=== PATIENT | male | born 1945 | race Caucasian/White ===

== ENCOUNTER 2017-06-04 06:30 | Day surgery (SDC) | payer MEDICARE, OTHER ==
[~2017-06-04 06:30] MED LIST: Lactated Ringers 1,000 ML IV SCH
[2017-06-04] MEDS ORDERED: Propofol 200 MG/20 ML SDV ONE ×2 (07:56→09:05)
[2017-06-04] MEDS ORDERED: fentaNYL 100 MCG/2 ML SDV ONE (07:57)
--- NOTE | 2017-06-04 10:35 | OR ---
PREOPERATIVE DIAGNOSIS: Dysphagia. POSTOPERATIVE DIAGNOSES: Gastritis, small hiatal hernia without gastroesophageal reflux disease. PROCEDURE PROPOSED: Upper gastrointestinal panendoscopy. PROCEDURE DONE: Upper gastrointestinal panendoscopy with antral biopsies. INDICATION: This is a 72-year-old gentleman bothered with some dysphagia with a feeling of some intermittent food sticking more so in his upper esophageal area occurring about 2 to 3 times a month. He does have a history of indigestion and does take Protonix and has been on that for several years. It is felt he should be gastroscoped to rule out esophageal stenosis or other abnormality. TECHNIQUE: The patient was brought to the endoscopy suite and placed in left lateral decubitus position. He was sedated per RAG CUTTING MACHINE OPERATOR with propofol. The flexible video gastroscope was then passed transorally and under visualization advanced well into the duodenum. The duodenum and the duodenal bulb was unremarkable. The antrum and body of the stomach did reveal gastritis with patches of redness and inflammation. An antral biopsy was taken to rule out H. pylori. The GE junction revealed a rather small insignificant approximately 3- cm hiatal hernia. There was no evidence of any active GERD. The GE junction was well-demarcated without Carlson's esophagus, stenosis, or Schatzki's ring, and the remainder of esophagus was normal. The scope was then withdrawn. The patient tolerated procedure well. FINAL IMPRESSION: 1. Gastritis. 2. 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 PLAN: I am going to double his Protonix to twice a day for a month and then back to 1 a day and see if that will help him get over the hump. He needs to avoid caffeine, alcohol, ibuprofen, and follow up with his PCP as needed. SCM: 06/04/2017 09:37:26 MODL: 06/04/2017 10:16:27 /[id number]
--- NOTE | 2017-06-04 10:35 | OR ---
PREOPERATIVE DIAGNOSIS: History of polyps. POSTOPERATIVE DIAGNOSIS: Sigmoid diverticulosis, hepatic flexure polyp, small, removed. PROCEDURE PROPOSED: Total flexible colonoscopy. PROCEDURE DONE: Total flexible colonoscopy with polypectomy x1. INDICATION: This 72-year-old gentleman has a history of polyps. He has had multiple colonoscopies over the years. His last one was 6 years ago at which point he does not think he had any polyps. TECHNIQUE: The patient was sedated per TOOL AND DIE MAKER APPRENTICE with propofol and placed in the left lateral decubitus position. The flexible video colonoscope was then passed transanally and under visualization advanced to the cecum with some difficulty mainly getting around hepatic flexure, but I was able to get down into a good view of the cecum. No signs of any polyps or abnormalities in the cecum and ascending colon area. In the hepatic flexure region, there was a small polyp removed with 1 bite of the cold biopsies forceps and submitted for pathologic examination. The transverse and descending colon were unremarkable. The sigmoid colon revealed some mild diverticulosis and the rectum was normal. The scope was then withdrawn. He tolerated the procedure well. FINAL IMPRESSION: 1. Hepatic flexure polyp x1 removed. 2. Sigmoid diverticulosis. PLAN: He will be sent a letter with pathology report. I felt that his age and with his medical issues that this is likely the last time he needs his colonoscopy done. SCM: 06/04/2017 09:37:26 MODL: 06/04/2017 10:20:26 /[id number]
--- NOTE | 2017-06-10 14:57 | LETTER ---
06/10/2017 Yanely Hicks. RE: FATMATA ONEILL YANELY : 1945 Dear Mr. Ny, The biopsies taken from your stomach revealed no worrisome abnormality and you do not have the bacteria known as H. pylori in your stomach, which can cause acid problems. The polyp removed from your colon was a tubular adenoma and this is considered a precancerous type polyp, but there were no worrisome findings within your polyp. I would encourage you to have one more examination in your lifetime in 3 to 5 years from now. If you have any further questions regarding this, feel free to call. Respectfully,
== END 2017-06-04 11:00 | disposition home or self-care (01) ==
LOC: VM.SDS 06:30
PROVIDERS: ATTEND Surgery
DX: Z12.11 Encounter for screening for malignant neoplasm of colon (principal); D12.3 Benign neoplasm of transverse colon; K57.30 Diverticulosis of large intestine without perforation or abscess without bleeding; K29.50 Unspecified chronic gastritis without bleeding; K44.9 Diaphragmatic hernia without obstruction or gangrene; I11.0 Hypertensive heart disease with heart failure; I50.9 Heart failure, unspecified; E11.42 Type 2 diabetes mellitus with diabetic polyneuropathy; J45.909 Unspecified asthma, uncomplicated; E66.01 Morbid (severe) obesity due to excess calories; Z68.41 Body mass index [BMI] 40.0-44.9, adult; I25.118 Atherosclerotic heart disease of native coronary artery with other forms of angina pectoris; D68.51 Activated protein C resistance; H81.03 Meniere's disease, bilateral; K21.9 Gastro-esophageal reflux disease without esophagitis; C61 Malignant neoplasm of prostate; I82.409 Acute embolism and thrombosis of unspecified deep veins of unspecified lower extremity; G47.33 Obstructive sleep apnea (adult) (pediatric); F41.8 Other specified anxiety disorders; Z86.010 Personal history of colon polyps; Z79.82 Long term (current) use of aspirin; Z79.01 Long term (current) use of anticoagulants; Z79.4 Long term (current) use of insulin; Z98.890 Other specified postprocedural states; Z88.0 Allergy status to penicillin; Z88.8 Allergy status to other drugs, medicaments and biological substances; Z91.040 Latex allergy status; Z95.1 Presence of aortocoronary bypass graft
CPT/HCPCS: 00813; 36415; 43239; 45380; 82962; 85610; 88305; 88342; J2704; J3010; J7120

== ENCOUNTER 2018-06-12 09:52 | Emergency (ER) | payer MEDICARE, OTHER ==
--- NOTE | 2018-06-12 10:27 | EDM.PDOC ---
ED HPI GENERAL MEDICAL PROBLEM - General Chief Complaint: General Stated Complaint: WEAK,TIRED,COUGHING Time Seen by Provider: 06/12/18 09:55 Source of Information: Reports: Patient, RN, RN Notes Reviewed History Limitations: Reports: No Limitations - History of Present Illness INITIAL COMMENTS - FREE TEXT/NARRATIVE: Patient presents to the ED at [facility] for the evaluation of weakness, dizziness, and SOB for about 1 1/2 weeks. Patient states he has been coughing up a green phlegm. His weight have been fluctuating and has a PRN Lasix if needed. He has a history of dizziness in which he see ENT. S/P PE tube right ear. Has a mild sore throat. Feels SOB, especially with coughing. No eye or ear symptoms. He had felt feverish. Is taking in enough fluids. History of uncontrolled DM. Denies any rhinitis or sinus pressure/pain. Patient states he has some body aches. Onset Date: 05/31/18 - Related Data Allergies Allergy/AdvReac Type Severity Reaction Status Date / Time liraglutide [From Victoza] Allergy Severe Anaphylactic Verified 06/12/18 10:15 Shock Latex, Natural Rubber Allergy Rash Verified 06/12/18 10:15 Penicillins Allergy Rash Verified 06/12/18 10:15 Beta-Blockers AdvReac Hypotension Verified 06/12/18 10:15 (Beta-Adrenergic Bloc Home Meds: Home Meds Albuterol [IJD: Albuterol HFA] 1 - 2 puff PO Q4H PRN 05/27/17 [History] Arginine [l-Arginine] 1 tab PO BID 05/27/17 [History] Aspirin [Halfprin] 325 mg PO DAILY 05/27/17 [History] Canagliflozin [Invokana] 300 mg PO ACBREAKFAST 05/27/17 [History] Furosemide [Lasix] 20 mg PO DAILY PRN 05/27/17 [History] Gabapentin [Neurontin] 500 mg PO BEDTIME 05/27/17 [History] Glimepiride [Amaryl] 4 mg PO DAILY 05/27/17 [History] Insulin Glargine,Hum.Rec.Anlog [Jennifer Solostdaphney] 50 unit SQ BEDTIME 05/27/17 [ History] Isosorbide Mononitrate [Imdur] 30 mg PO DAILY 05/27/17 [History] Latanoprost [Xalatan 0.005% Ophth Soln] 1 drop EYEBOTH BEDTIME 05/27/17 [History ] Lisinopril 2.5 mg PO DAILY 05/27/17 [History] Metoprolol Tartrate [Lopressor] 25 mg PO BID 05/27/17 [History] Nitroglycerin [Nitrostat] 0.4 mg PO ASDIRECTED PRN 05/27/17 [History] Pantoprazole Sodium [Protonix] 40 mg PO DAILY 05/27/17 [History] Rosuvastatin [Crestor] 40 mg PO DAILY 05/27/17 [History] Venlafaxine [Effexor XR] 150 mg PO DAILY 05/27/17 [History] Warfarin [Coumadin] 5 mg PO ASDIRECTED 05/27/17 [History] metFORMIN HCl [Metformin HCl] 1,000 mg PO BID 05/27/17 [History] Past Medical History HEENT History: Reports: Cataract, Glaucoma, Other (See Below) Other HEENT History: menieres disease Cardiovascular History: Reports: Aneurysm, Blood Clots/VTE/DVT, CAD, Heart Failure, Heart Murmur, Hypertension, SOB on Exertion Respiratory History: Reports: Sleep Apnea, Other (See Below) Other Respiratory History: pt says he might have COPD, reactive airway disease Gastrointestinal History: Reports: Colon Polyp, GERD, Other (See Below) Other Gastrointestinal History: dysphagia Genitourinary History: Reports: Renal Calculus Musculoskeletal History: Reports: Arthritis Neurological History: Reports: Other (See Below) Other Neuro History: mononeuritis Psychiatric History: Reports: Anxiety, Depression Endocrine/Metabolic History: Reports: Diabetes, Type II, Obesity/BMI 30+ Hematologic History: Reports: Other (See Below) Other Hematologic History: heterozygous factor V Leiden mutation Oncologic (Cancer) History: Reports: Prostate - Past Surgical History HEENT Surgical History: Reports: Cataract Surgery Other HEENT Surgeries/Procedures: cornea transplant bilateral Cardiovascular Surgical History: Reports: Coronary Artery Bypass, Coronary Artery Stent GI Surgical History: Reports: Bariatric Procedure, Colonoscopy Male Surgical History: Reports: Prostatectomy Other Oncologic Surgeries/Procedures: prostatectomy Social & Family History - Tobacco Use Smoking Status *Q: Unknown Ever Smoked ED ROS GENERAL - Review of Systems Review Of Systems: See Below Constitutional: Reports: Fever, Weakness. Denies: Chills HEENT: Reports: Throat Pain. Denies: Ear Discharge, Ear Pain, Eye Discharge, Rhinitis, Sinus Problem, Vision Change Respiratory: Reports: Shortness of Breath, Cough, Sputum Cardiovascular: Denies: Chest Pain, Palpitations GI/Abdominal: Denies: Abdominal Pain, Nausea, Vomiting Skin: Reports: No Symptoms Neurological: Reports: Dizziness, Weakness. Denies: Headache ED EXAM, GENERAL - Physical Exam Exam: See Below Exam Limited By: No Limitations General Appearance: Alert, No Apparent Distress Eye Exam: Bilateral Eye: Normal Inspection, PERRL Ears: Normal External Exam, Normal Canal, Normal TMs Ear Exam: Bilateral Ear: TM normal Nose: Normal Inspection Throat/Mouth: Other (slight posterior erythema of oropharynx) Neck: Supple Respiratory/Chest: No Respiratory Distress, Lungs Clear, Decreased Breath Sounds Cardiovascular: Regular Rate, Rhythm, Systolic Murmur Peripheral Pulses: 2+: Radial (L), Radial (R) GI/Abdominal: Normal Bowel Sounds, Soft, Non-Tender Neurological: Alert, Oriented Skin Exam: Warm, Dry, Intact, Normal Color Course - Vital Signs Last Recorded V/S: Last Vital Signs Temp 36.1 C 06/12/18 09:55 Pulse 98 06/12/18 09:55 Resp 18 06/12/18 09:55 BP 105/52 L 06/12/18 09:55 Pulse Ox 99 06/12/18 09:55 - Orders/Labs/Meds Orders: Active Orders 24 hr Category Date Time Status CULTURE BLOOD [BC] Stat Lab 06/12/18 10:22 Results CULTURE BLOOD [BC] Stat Lab 06/12/18 10:30 Received CULTURE STREP A CONFIRMATION [] Stat Lab 06/12/18 10:12 Results STREP SCRN A RAPID W CULT CONF [] Stat Lab 06/12/18 10:12 Results Blood Culture x2 Reflex Set [OM.PC] Stat Oth 06/12/18 10:10 Ordered Labs: Laboratory Tests 06/12/18 06/12/18 06/12/18 Range/Units 10:22 10:22 10:22 WBC 7.4 (4.0-10.0) x10^3/uL RBC 4.49 L (4.5-6.0) x10^6/uL Hgb 13.2 L (14.0-18.0) g/dL Hct 41.9 (40.0-52.0) % MCV 93.3 H (78.0-93.0) fL MCH 29.4 (26.0-32.0) pg MCHC 31.5 L (32.0-36.0) g/dL RDW Coeff of Kim 16.5 H (10.0-15.0) % Plt Count 205 (130-400) x10^3/uL Neut % (Auto) 69.1 (50.0-80.0) % Lymph % (Auto) 19.7 L (25.0-50.0) % Real % (Auto) 8.1 (2.0-11.0) % Eos % (Auto) 1.5 (0.0-4.0) % Baso % (Auto) 1.6 H (0.2-1.2) % Sodium 135 L (136-145) mmol/L Potassium 4.4 (3.5-5.1) mmol/L Chloride 98 (98-107) mmol/L Carbon Dioxide 25 (21-32) mmol/L Anion Gap 16.4 (10-20) mmol/L BUN 28 H (7-18) mg/dL Creatinine 1.2 (0.70-1.30) mg/dL Est Cr Clr Drug Dosing TNP Estimated GFR (MDRD) 59 Glucose 249 H (74-106) mg/dL Lactic Acid 3.5 H* (0.4-2.0) mmol/L Calcium 9.6 (8.5-10.1) mg/dL Corrected Calcium 10.16 H (8.5-10.1) mg/dL Total Bilirubin 0.4 (0.2-1.0) mg/dL AST 12 L (15-37) U/L ALT 26 (16-63) U/L Alkaline Phosphatase 58 (46-116) U/L C-Reactive Protein 1.4 H (<=0.9) mg/dL Total Protein 7.4 (6.4-8.2) g/dL Albumin 3.3 L (3.4-5.0) g/dL Globulin 4.1 Albumin/Globulin Ratio 0.80 - Radiology Interpretation Free Text/Narrative:: CXR: Negative for pneumonia See scanned report in EMR for details Departure - Departure Time of Disposition: 11:23 Disposition: Home, Self-Care 01 Condition: Good Clinical Impression: URI (upper respiratory infection) Qualifiers: URI type: unspecified URI Qualified Code(s): J06.9 - Acute upper respiratory infection, unspecified - Discharge Information *PRESCRIPTION DRUG MONITORING PROGRAM REVIEWED*: Not Applicable *COPY OF PRESCRIPTION DRUG MONITORING REPORT IN PATIENT SAM: Not Applicable Instructions: Viral Respiratory Infection Referrals: Jaycee Yanez DO [Primary Care Provider] - Forms: ED Department Discharge Additional Instructions: 1. Stay well hydrated and rest 2. Use over the counter medicines as needed for your symptoms 3. LOTS of water 4. See Dr. Yanez in clinic this week for a recheck 5. Call us with any questions or concerns - Problem List Review Problem List Initiated/Reviewed/Updated: Yes - My Orders Last 24 Hours: My Active Orders 06/12/18 10:10 Blood Culture x2 Reflex Set [OM.PC] Stat 06/12/18 10:12 CULTURE STREP A CONFIRMATION [RM] Stat STREP SCRN A RAPID W CULT CONF [RM] Stat 06/12/18 10:22 CULTURE BLOOD [BC] Stat 06/12/18 10:30 CULTURE BLOOD [BC] Stat - Assessment/Plan Last 24 Hours: My Active Orders 06/12/18 10:10 Blood Culture x2 Reflex Set [OM.PC] Stat 06/12/18 10:12 CULTURE STREP A CONFIRMATION [RM] Stat STREP SCRN A RAPID W CULT CONF [RM] Stat 06/12/18 10:22 CULTURE BLOOD [BC] Stat 06/12/18 10:30 CULTURE BLOOD [BC] Stat Assessment:: Upper respiratory infection Elevated lactic acid level Plan: Labs and xray discussed with patient. No acute bacterial infection or emergency found. Case discussed with Dr. Jaycee Yanez. Recommend patient to follow up in clinic this week for a recheck. Symptomatic treatment at this point. Needs to stay well hydrated. Use OTC products for symptom management.
[2018-06-12 10:58] LABS: CHLORIDE,CL 98 mmol/L (98-107); SODIUM,NA 135 mmol/L (136-145)
[2018-06-12 11:02] LABS: ANION GAP 16.4 mmol/L (10-20)
--- NOTE | 2018-06-12 11:08 | CR ---
[id number] RAD/RAD Chest PA And Lateral EXAM: RAD Chest PA And Lateral INDICATION: FEVER, COUGH. COMPARISON: None. DISCUSSION: Mild cardiomegaly. Status post median sternotomy. Lungs are clear. IMPRESSION: Negative for pneumonia. Colby Maldonado MD 06/12/18 [id number] Thank you for allowing us to participate in the care of your patient.
== END 2018-06-12 11:35 | disposition home or self-care (01) ==
LOC: VM.ED 09:52
DX: J06.9 Acute upper respiratory infection, unspecified (principal); R79.89 Other specified abnormal findings of blood chemistry; E11.9 Type 2 diabetes mellitus without complications; K21.9 Gastro-esophageal reflux disease without esophagitis; I11.0 Hypertensive heart disease with heart failure; I50.9 Heart failure, unspecified; Z79.899 Other long term (current) drug therapy; Z79.4 Long term (current) use of insulin; Z91.040 Latex allergy status; Z88.0 Allergy status to penicillin; Z88.8 Allergy status to other drugs, medicaments and biological substances
CPT/HCPCS: 36415; 71046; 80053; 83605; 85025; 86140; 87040; 87081; 87804; 87804-59; 87880-QW; 99283-25; 99283-GF

== ENCOUNTER 2018-09-28 14:00 | Observation (INO) | payer MEDICARE, OTHER ==
--- NOTE | 2018-09-28 14:18 | EDM.PDOC ---
ED HPI GENERAL MEDICAL PROBLEM - General Chief Complaint: General Stated Complaint: TRAUMA Time Seen by Provider: 09/28/18 14:00 Source of Information: Reports: Patient, EMS, EMS Notes Reviewed, Family History Limitations: Reports: No Limitations - History of Present Illness INITIAL COMMENTS - FREE TEXT/NARRATIVE: Patient comes into the emergency department by EMS with a ground-level fall with possibility of loss of consciousness. Patient states he does remember feeling weak and ill prior to this fall. However he does not remember the fall and does not remember how long he was lying there. He remembers waking up and waiting approximately 5-10 minutes until a bystander came by to help. When the bystander came by they contacted 911. Bedtime EMS on scene patient was alert and oriented and talking. States that he had right-sided neck pain. Also states that he had a headache. Patient is on Coumadin his last INR was 2.87 on 09/26. Patient denies any chest pain, shortness of breath, dizziness, lightheadedness, does state that he has a headache. Also states that he has right sided neck discomfort currently. Patient does have bleeding on the face however he denies any pain is comfort. Onset: Sudden Quality: Reports: Other Severity: Mild Improves with: Reports: None Worsens with: Reports: None Associated Symptoms: Reports: No Other Symptoms - Related Data Allergies Allergy/AdvReac Type Severity Reaction Status Date / Time liraglutide [From Victoza] Allergy Severe Anaphylactic Verified 06/12/18 10:15 Shock Latex, Natural Rubber Allergy Rash Verified 06/12/18 10:15 Penicillins Allergy Rash Verified 06/12/18 10:15 Beta-Blockers AdvReac Hypotension Verified 06/12/18 10:15 (Beta-Adrenergic Bloc Home Meds: Home Meds Albuterol [IJD: Albuterol HFA] 1 - 2 puff PO Q4H PRN 05/27/17 [History] Arginine [l-Arginine] 1 tab PO BID 05/27/17 [History] Aspirin [Halfprin] 325 mg PO DAILY 05/27/17 [History] Canagliflozin [Invokana] 300 mg PO ACBREAKFAST 05/27/17 [History] Furosemide [Lasix] 20 mg PO DAILY PRN 05/27/17 [History] Gabapentin [Neurontin] 500 mg PO BEDTIME 05/27/17 [History] Glimepiride [Amaryl] 4 mg PO DAILY 05/27/17 [History] Insulin Glargine,Hum.Rec.Anlog [Toujeo Solostar] 50 unit SQ BEDTIME 05/27/17 [ History] Isosorbide Mononitrate [Imdur] 30 mg PO DAILY 05/27/17 [History] Latanoprost [Xalatan 0.005% Ophth Soln] 1 drop EYEBOTH BEDTIME 05/27/17 [History ] Lisinopril 2.5 mg PO DAILY 05/27/17 [History] Metoprolol Tartrate [Lopressor] 25 mg PO BID 05/27/17 [History] Nitroglycerin [Nitrostat] 0.4 mg PO ASDIRECTED PRN 05/27/17 [History] Pantoprazole Sodium [Protonix] 40 mg PO DAILY 05/27/17 [History] Rosuvastatin [Crestor] 40 mg PO DAILY 05/27/17 [History] Venlafaxine [Effexor XR] 150 mg PO DAILY 05/27/17 [History] Warfarin [Coumadin] 5 mg PO ASDIRECTED 05/27/17 [History] metFORMIN HCl [Metformin HCl] 1,000 mg PO BID 05/27/17 [History] Past Medical History HEENT History: Reports: Cataract, Glaucoma, Other (See Below) Other HEENT History: menieres disease Cardiovascular History: Reports: Aneurysm, Blood Clots/VTE/DVT, CAD, Heart Failure, Heart Murmur, Hypertension, SOB on Exertion Respiratory History: Reports: Sleep Apnea, Other (See Below) Other Respiratory History: pt says he might have COPD, reactive airway disease Gastrointestinal History: Reports: Colon Polyp, GERD, Other (See Below) Other Gastrointestinal History: dysphagia Genitourinary History: Reports: Renal Calculus Musculoskeletal History: Reports: Arthritis Neurological History: Reports: Other (See Below) Other Neuro History: mononeuritis Psychiatric History: Reports: Anxiety, Depression Endocrine/Metabolic History: Reports: Diabetes, Type II, Obesity/BMI 30+ Hematologic History: Reports: Other (See Below) Other Hematologic History: heterozygous factor V Leiden mutation Oncologic (Cancer) History: Reports: Prostate - Past Surgical History HEENT Surgical History: Reports: Cataract Surgery Other HEENT Surgeries/Procedures: cornea transplant bilateral Cardiovascular Surgical History: Reports: Coronary Artery Bypass, Coronary Artery Stent GI Surgical History: Reports: Bariatric Procedure, Colonoscopy Male Surgical History: Reports: Prostatectomy Other Oncologic Surgeries/Procedures: prostatectomy Review of Systems - Review of Systems Review Of Systems: ROS reveals no pertinent complaints other than HPI. Eyes: Reports: No Symptoms Ears: Reports: No Symptoms Nose: Reports: Pain, Bloody Discharge Mouth/Throat: Reports: No Symptoms Respiratory: Reports: No Symptoms Cardiovascular: Reports: No Symptoms GI/Abdominal: Reports: No Symptoms Genitourinary: Reports: No Symptoms Musculoskeletal: Reports: No Symptoms Skin: Reports: No Symptoms Neurological: Reports: No Symptoms Psychiatric: Reports: No Symptoms ED EXAM, GENERAL - Physical Exam Exam: See Below Exam Limited By: No Limitations General Appearance: Alert, WD/WN, No Apparent Distress Eye Exam: Bilateral Eye: EOMI, PERRL Ears: Normal External Exam, Normal Canal, Hearing Grossly Normal, Normal TMs Ear Exam: Bilateral Ear: Auricle Normal, Canal Normal, TM normal Nose: Nasal Tenderness, Nasal Swelling, Nasal Drainage Throat/Mouth: Other (laceration of the lip. minimal bleeding noted ) Head: Facial Swelling, Facial Tenderness Neck: Other (pain noted right side of neck upon palpation). No: Tender Midline Respiratory/Chest: No Respiratory Distress, Lungs Clear, Normal Breath Sounds, No Accessory Muscle Use, Chest Non-Tender Cardiovascular: Normal Peripheral Pulses, Regular Rate, Rhythm Peripheral Pulses: 3+: Carotid (L), Carotid (R), Radial (L), Radial (R), Dorsalis Pedis (L), Dorsalis Pedis (R) GI/Abdominal: Normal Bowel Sounds, Soft, Non-Tender, No Distention, No Abnormal Bruit Extremities: Normal Inspection, Normal Range of Motion, Non-Tender, No Pedal Edema, Normal Capillary Refill Neurological: Alert, Oriented, Normal Cognition, No Motor/Sensory Deficits Psychiatric: Normal Affect, Normal Mood Skin Exam: Warm, Dry, Intact, Normal Color Front/Back Body Diagram: 1 - wound noted from fall. minimal bleeding. edges non approximated. epidermis tissue involved 2 - superficial laceration noted Course - Orders/Labs/Meds Orders: Active Orders 24 hr Category Date Time Status Admission Status [Patient Status] [ADT] Routine ADT 09/28/18 15:03 Ordered Blood Glucose Check, Bedside [RC] ONETIME Care 09/28/18 14:10 Active EKG Documentation Completion [RC] STAT Care 09/28/18 14:09 Active Sodium Chloride 0.9% [Normal Saline] 1,000 ml Med 09/28/18 14:45 Active IV ASDIRECTED Medication Orders Sodium Chloride (Normal Saline) 1,000 mls @ 150 mls/hr IV ASDIRECTED JUAREZ Last Admin: 09/28/18 14:44 Dose: 150 mls/hr Labs: Laboratory Tests 09/28/18 09/28/18 09/28/18 Range/Units 14:12 14:13 14:13 WBC 7.1 (4.0-10.0) x10^3/uL RBC 4.58 (4.5-6.0) x10^6/uL Hgb 13.8 L (14.0-18.0) g/dL Hct 41.7 (40.0-52.0) % MCV 91.0 (78.0-93.0) fL MCH 30.1 (26.0-32.0) pg MCHC 33.1 (32.0-36.0) g/dL RDW Coeff of Kim 16.2 H (10.0-15.0) % Plt Count 192 (130-400) x10^3/uL Add Manual Diff Yes Neutrophils % (Manual) 69 (50-80) % Lymphocytes % (Manual) 21 L (25-50) % Monocytes % (Manual) 5 (2-11) % Eosinophils % (Manual) 2 (0-4) % Metamyelocytes % 2 H (0) % Myelocytes % 1 H (0) % Platelet Estimate Adequate PT 23.5 H (10.0-12.8) SEC INR 2.1 (2.0-3.5) Sodium (136-145) mmol/L Potassium (3.5-5.1) mmol/L Chloride (98-107) mmol/L Carbon Dioxide (21-32) mmol/L Anion Gap (10-20) mmol/L BUN (7-18) mg/dL Creatinine (0.70-1.30) mg/dL Est Cr Clr Drug Dosing Estimated GFR (MDRD) Glucose (74-106) mg/dL POC Glucose 186 H (74-106) mg/dL Calcium (8.5-10.1) mg/dL Corrected Calcium (8.5-10.1) mg/dL Total Bilirubin (0.2-1.0) mg/dL AST (15-37) U/L ALT (16-63) U/L Alkaline Phosphatase (46-116) U/L Creatine Kinase (39-308) U/L NT-Pro-B Natriuret Pep (<=450) pg/mL Total Protein (6.4-8.2) g/dL Albumin (3.4-5.0) g/dL Globulin Albumin/Globulin Ratio // Range/Units 14:13 WBC (4.0-10.0) x10^3/uL RBC (4.5-6.0) x10^6/uL Hgb (14.0-18.0) g/dL Hct (40.0-52.0) % MCV (78.0-93.0) fL MCH (26.0-32.0) pg MCHC (32.0-36.0) g/dL RDW Coeff of Kim (10.0-15.0) % Plt Count (130-400) x10^3/uL Add Manual Diff Neutrophils % (Manual) (50-80) % Lymphocytes % (Manual) (25-50) % Monocytes % (Manual) (2-11) % Eosinophils % (Manual) (0-4) % Metamyelocytes % (0) % Myelocytes % (0) % Platelet Estimate PT (10.0-12.8) SEC INR (2.0-3.5) Sodium 137 (136-145) mmol/L Potassium 5.0 (3.5-5.1) mmol/L Chloride 98 (98-107) mmol/L Carbon Dioxide 28 (21-32) mmol/L Anion Gap 16.0 (10-20) mmol/L BUN 28 H (7-18) mg/dL Creatinine 1.5 H (0.70-1.30) mg/dL Est Cr Clr Drug Dosing TNP Estimated GFR (MDRD) 46 Glucose 193 H (74-106) mg/dL POC Glucose (74-106) mg/dL Calcium 9.4 (8.5-10.1) mg/dL Corrected Calcium 9.72 (8.5-10.1) mg/dL Total Bilirubin 0.4 (0.2-1.0) mg/dL AST 16 (15-37) U/L ALT 32 (16-63) U/L Alkaline Phosphatase 56 (46-116) U/L Creatine Kinase 48 (39-308) U/L NT-Pro-B Natriuret Pep 103 (<=450) pg/mL Total Protein 7.2 (6.4-8.2) g/dL Albumin 3.6 (3.4-5.0) g/dL Globulin 3.6 Albumin/Globulin Ratio 1.00 Meds: Medications Generic Name Dose Route Start Last Admin Trade Name Freq PRN Reason Stop Dose Admin Sodium Chloride 1,000 mls @ 150 mls/hr 09/28/18 14:45 09/28/18 14:44 Normal Saline IV 150 mls/hr ASDIRECTED JUAREZ Administration Departure - Departure Time of Disposition: 15:15 Disposition: Refer to Observation Condition: Good Clinical Impression: LOC (loss of consciousness), Bleeding disorder Fall Qualifiers: Encounter type: initial encounter Qualified Code(s): W19.XXXA - Unspecified fall, initial encounter Hyperglycemia due to type 2 diabetes mellitus Qualifiers: Diabetes mellitus long term acute care registered nurse insulin use: with long term acute care registered nurse use Qualified Code(s): E11.65 - Type 2 diabetes mellitus with hyperglycemia; Z79.4 - intermediate designer (current ) use of insulin Meniere disease Qualifiers: Laterality: unspecified laterality Qualified Code(s): H81.09 - Meniere's disease, unspecified ear - Discharge Information *PRESCRIPTION DRUG MONITORING PROGRAM REVIEWED*: Not Applicable *COPY OF PRESCRIPTION DRUG MONITORING REPORT IN PATIENT SAM: Not Applicable Forms: ED Department Discharge - My Orders Last 24 Hours: My Active Orders 09/28/18 14:09 EKG Documentation Completion [RC] STAT 09/28/18 14:10 Blood Glucose Check, Bedside [RC] ONETIME 09/28/18 14:45 Sodium Chloride 0.9% [Normal Saline] 1,000 ml IV ASDIRECTED 09/28/18 15:03 Admission Status [Patient Status] [ADT] Routine - Assessment/Plan Last 24 Hours: My Active Orders 09/28/18 14:09 EKG Documentation Completion [RC] STAT 09/28/18 14:10 Blood Glucose Check, Bedside [RC] ONETIME 09/28/18 14:45 Sodium Chloride 0.9% [Normal Saline] 1,000 ml IV ASDIRECTED 09/28/18 15:03 Admission Status [Patient Status] [ADT] Routine Assessment:: 1. fall with LOC 2. Anticoagulant INR 2.8 09/27 3. Hyperglycemia 4. Meniere Disease Plan: 1. Trauma code called due to patients fall from ground level with LOC and on anticoagulants 2. CT scan completed of head due to LOC and anticoagulant and potential facial injuries. CT scan completed enough of head to view facial bones. Xray of facial bones were canceled. 3. CT of neck completed due to neck pain, LOC, ground level fall, and on anticoagulants. 4. IV fluids given 150ml/hr 5. [address] [place] [address] trauma team contacted. He agrees pt is stable currently without any life threatening known injuries. If instability or injuries noted he recommends calling and they are willing to accept the patient. 6. EKG completed. Sinus [id number], right bundle branch noted, no ST elevation noted 7. Nasal fracture-non displaced. All other imaging Negative. Bleeding is controlled from all laceration/abrasion sites. Pt remains alert and oriented during stay. Denies any pain or concerns. Did contact Patients PCP for he wished to be under her care if possible. PCP Dr. Yanez is available and willing to admit patient to observation for further neurological monitoring and bleeding concerns. 8. All questions and concerns addressed prior to patient being admitted.
[2018-09-28] MEDS ORDERED: Sodium Chloride 0.9% 1,000 ML IV ONE (14:44)
[2018-09-28] MEDS ORDERED: Sodium Chloride 0.9% 1,000 ML IV SCH ×2 (14:45→16:00)
--- NOTE | 2018-09-28 14:45 | CT ---
[id number] CT/CT Head WO IV EXAM: CT Head WO IV CLINICAL DATA: FALL, HIT HEAD, ON BLOOD THINNER. COMPARISON STUDY: MRI from 2018. FINDINGS: No intracranial hemorrhage, extra-axial fluid collection, mass, or acute ischemia. Mild to moderate sequela of chronic small vessel disease throughout the brain, including both parenchymal atrophy and white matter gliosis. Acute nasal bone and bony nasal septum fractures with small amount of blood products in the nasal cavities. Additionally, there is hyperdense material within the left maxillary sinus. Findings are likely sequela of chronic sinusitis, as there are other changes of sinusitis. Of note, there is cortical depression of the anterior left maxillary sinus wall. However, no overlying soft tissue contusion suggests a chronic fracture. IMPRESSION: Acute nondisplaced fractures of the nasal bone and bony nasal septum. No calvarial fracture or acute intracranial hemorrhage. Other findings are described above. Colby Maldonado MD 09/28/18 0326 Thank you for allowing us to participate in the care of your patient.
--- NOTE | 2018-09-28 14:47 | CT ---
[id number] CT/CT Cervical Spine WO IV EXAM: CT Cervical Spine WO IV INDICATION: TRAUMA - HIT HEAD, ON BLOOD THINNERS. COMPARISON: None. DISCUSSION: No fracture or compression deformity. Vertebral bodies remain in normal alignment. Scattered changes of spondylosis throughout the cervical spine. Changes of mastoidectomy on the right. Remaining mastoid air cells demonstrate partial opacification. Middle ear cavity is clear. Left mastoid air cells are unremarkable. IMPRESSION: No acute findings in the cervical spine. Colby Maldonado MD 09/28/18 1446 Thank you for allowing us to participate in the care of your patient.
[2018-09-28 14:48] LABS: CHLORIDE,CL 98 mmol/L (98-107); SODIUM,NA 137 mmol/L (136-145)
--- NOTE | 2018-09-28 14:49 | CR ---
[id number] RAD/RAD Chest PA or AP 1V EXAM: RAD Chest PA or AP 1V INDICATION: FALL, HIT HEAD, ON BLOOD THINNERS. COMPARISON: June 12, 2018. DISCUSSION: Cardiomediastinal silhouette is stable in size and contour compared to the prior examination. Hazy opacification over the left costophrenic sulcus was not seen previously. Finding is nonspecific and could represent a small effusion. No associated fracture or pneumothorax on this single view of the chest. Right lung is clear. IMPRESSION: Possible small left effusion not seen previously. Otherwise, no significant change. Colby Maldonado MD 09/28/18 [id number] Thank you for allowing us to participate in the care of your patient.
--- NOTE | 2018-09-28 14:58 | CT ---
[id number] CT/CT Facial Bones WO IV Exam: CT Facial Bones WO IV Indication:FALL, HEAD, BLOOD THINNERS. Comparison: No prior imaging for comparison. Discussion: Soft tissue contusion over the nasal bones, as well as the maxilla. Nasal bones demonstrate nondisplaced fractures bilaterally. Anterior bony nasal septum is also fractured. Small amount of blood products in the nasal cavities. Small area of depression along the anterior left maxillary sinus wall. Absence of overlying contusion suggests this is a chronic finding. However, there is hyperdense material in the left maxillary sinus. Given history of prior sinus surgery and other sequela of sinusitis, findings are likely inspissated secretions in the setting of chronic sinusitis. Post surgical change in the right mastoid region of the temporal bone consistent with partial mastoidectomy. Some of the remaining mastoid air cells are opacified, nonspecific in etiology. Impression: Acute slightly depressed fracture of the bilateral nasal bones. Acute nondisplaced fracture of the anterior bony nasal septum. Blood products nasal cavity. Other findings are described above. Colby Maldonado MD 09/28/18 [id number] Thank you for allowing us to participate in the care of your patient.
[2018-09-28] MEDS ORDERED: Acetaminophen 325 MG Tab PO PRN (15:47)
[2018-09-28] MEDS ORDERED: Ondansetron 4 MG/2 ML SDV IV PRN (15:47)
[2018-09-28] MEDS ORDERED: Ondansetron 4 MG Tab.DIS PO PRN (15:47)
[2018-09-28] MEDS ORDERED: Albuterol HFA 18 Gm Inhaler INH PRN (16:06)
[2018-09-28] MEDS ORDERED: Docusate Sodium/Sennosides 50-8.6 MG Tab**OWN MED PO PRN (16:06)
[2018-09-28] MEDS ORDERED: TRAMADOL 50 MG PO PRN (16:06)
[2018-09-28] MEDS ORDERED: Acetaminophen 500 MG Tab PO PRN (16:06)
[2018-09-28] MEDS ORDERED: Nitroglycerin 0.4 MG Tab.SL SL PRN (16:06)
[2018-09-28] MEDS ORDERED: Loratadine 10 MG Tab PO PRN (18:15)
--- NOTE | 2018-09-28 18:25 | HP ---
CHIEF COMPLAINT: Fall and facial injuries. HISTORY OF PRESENT ILLNESS: This is a 73-year-old male who felt unwell today. He has not been sleeping well at night. He was actually eating lunch and was falling asleep at his lee. He then went outside to walk to his car. He almost could not see the curb and he thinks maybe he just did not step right, he fell. He does not remember starting to fall, but remembers the ground coming up towards him, then he did lose consciousness after the fall. He denies any severe headache. He woke up maybe after 5 to 10 minutes. A bystander came by to help. The patient is on Coumadin. His INR was 2.1 today. He did have a minor nosebleed, but that seems to have quit now. He does feel a little blood in the back of his throat, but he feels that is old blood. No trouble with breathing, but he has felt dizzy even before he fell. He has a longstanding history of Meniere's disease. He has even had surgery for it. Last night, he did have some pain in the left ear. It is better today. Blood sugars have been poorly controlled. They have been up over 200. He states he is taking his insulin which is currently Tresiba 58 units. He is also on Invokana and metformin. Couple of months ago, his glyburide was stopped due to concerns of lower blood sugars. He is also on Maxzide due to the Meniere's and then Lasix which he takes about every other day. In fact, back in July he was admitted for a similar episode, given fluids, ruled out for a PE with CT of the chest, diagnosed with the UTI, but culture was later negative. He did get Cipro back in July. The patient denies that he has had any diarrhea. He denies that he has had any burning with urination. He takes the Coumadin due to history of blood clots for factor V Leiden. He has had some sinus surgeries in the past. He does also have a history of aortic stenosis, which was mild to moderate a year and a half ago. He has not had any chest pain or trouble breathing. He has multiple other medical comorbidities, which have been stable. He does have a history of coronary disease with previous bypass. ALLERGIES: Otherwise, his allergies include beta-blockers cause hypotension, Victoza caused "blocked airway." Latex causes a rash and itching. PAST MEDICAL HISTORY: Quite complex includes wgyy-ki-eqozxomi aortic stenosis, ascending aortic aneurysm, coronary disease with CABG back in 2014, exercise exaggerated heart rate response to stress was done in 2018. He had an angiogram that year also with patent grafts. Chronic diastolic heart failure, his EF is 60% in 2017. He also has a history of depression and anxiety. Type 2 diabetes, controlled, with diabetic polyneuropathy, on long-term insulin. Essential hypertension, GERD, factor V Leiden, heterozygous for MTHFR, history of kidney stones, long-term Coumadin for recurrent DVTs, malignant neoplasm of the prostate back in 1997 with prostatectomy. He also had a TURP in 2005. Meniere's disease to both ears longstanding with decompression surgery last year in [place]. Obesity, obstructive sleep apnea, on CPAP. Reactive airway disease that is not asthma, but never smoked. Colon polyps, tubular adenoma in 05/2017. PAST SURGICAL HISTORY: The patient has had heart bypass surgery, tonsillectomy, sinus surgery, warts removed from his right ear, prostate surgery, IVC filter, lap band surgery, hemorrhoid surgery, excision of a pilonidal cyst, corneal transplant, cataract extractions. SOCIAL HISTORY: The patient is from his . 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 He moved to [place] to live near his sister. He lives in [facility]. He is a nonsmoker, nondrinker. FAMILY HISTORY: Both parents are . Mother had Alzheimer's. Father had strokes, cataracts. Sister has fibromyalgia listed. Brother with lung cancer. REVIEW OF SYSTEMS: General: The patient had been losing some weight about 10 pounds this summer. Also, no fever, no chills. HEENT: No sore throat. No trouble swallowing. He did not have nosebleeds prior to this fall. Vision had not significantly changed. Cardiac: No chest pain. He had not felt any palpitations. Respiratory: No new cough or shortness of breath. Gastrointestinal: No nausea, vomiting, diarrhea. Otherwise, all systems reviewed and found to be negative unless otherwise stated. PHYSICAL EXAMINATION: Vital Signs: I do not have them in front of me. I will put them in later. Heart: Regularly irregular. S1, S2 with murmur noted. Lungs: Lung sounds are clear to auscultation bilaterally without crackles or wheezes. Abdomen: Has positive bowel sounds. Soft, nondistended, nontender. Extremities: Warm and dry. No edema. Mental Status: He is alert, he is orientated x3. He is answering questions appropriately. Skin/HEENT: Does show about a 1 cm sore above his lip right below his nose consistent with injury. This is not something that can be sutured back together. The pieces of tissue are missing. He also has similar one between his eyes. It was probed. It is not deep. It is not actively bleeding. No sutures indicated. Nose is examined. No septal hematoma noted. His septum is midline. No obvious nasal deformity, just mild swelling. Some pooling of blood into the right nostril, just a little bit of drainage. No blood is noted down the back of his throat. On exam, he is lying flat. His teeth are all intact, nothing is broken. Blood around his lips, but no sores. IMAGING DATA: Otherwise, CT scan done did show acute slightly depressed fracture of bilateral nasal bones and acute nondisplaced fracture of the anterior bony nasal septum. There was a head CT with no intracranial hemorrhage and there was also a chest x-ray performed which showed no acute infiltrates or pulmonary edema. LABORATORY DATA: Otherwise, lab work was reviewed and showed his white count 7.1, hemoglobin 13.8, platelets 192. INR 2.1. Sodium 137, potassium 5, chloride 98, bicarb 28, BUN 28, creatinine 1.5, glucose 196, calcium 9.4. ALT, AST, bilirubin all normal. ProBNP was 103. ASSESSMENT: 1. Fall, presumably due to hypotension. The patient had some blood pressures even 80/40 here in the ER. He was telling how he felt tired and dizzy even before the fall. I do not believe he had an abrupt episode of syncope. 2. Fall with head injury, likely concussion and also loss of consciousness. Head CT was okay. 3. Renal insufficiency. The patient's last creatinine in the clinic was 1.3. It had actually been below 1 prior to that. This is likely due to medications contributing to some dehydration, which presumably led to hypotension and he fall. 4. Known ujhy-lf-ggkzooba aortic stenosis. The patient will need an echo as an outpatient to ensure this has not gotten worse. 5. Known coronary artery disease. We will send a troponin level. I do not believe this to be an acute coronary event. However, EKG did not show any acute changes. 6. Diabetes, not well controlled. Invokana will need to be held given the fact he is dehydrated. We will have to adjust insulin, do q.i.d. checks. He is really not a candidate for GLPs due to his allergy in the past. We can add some meal insulin here 5 units 3 times a day and titrate up as needed. 7. History of prostate cancer. Possible previous urinary tract infection couple of months ago. We will check a urine. We will also get a bladder scan. 8. Obstructive sleep apnea. He is not going to be able to wear his CPAP for probably the next 4 to 6 weeks until these fractures heal. 9. Obesity. 10.Diastolic heart failure. This is stable. We will hold his Lasix. 11.Mild epistaxis. This appears to have resolved. We will just continue to monitor closely. We will hold his dose of Coumadin tonight. I would like to avoid any major nasal packing given the fractures. 12.Anticoagulated with Coumadin due to recurrent deep venous thrombosis. He is therapeutic now at 2.1. We will hold Coumadin tonight and recheck tomorrow. PLAN: Overall, this is a very medically complex patient who will be admitted for observation and monitoring. Neuro checks every 2 hours while awake. I do not feel the orthostatic vitals are indicated. We already know he was hypotensive. I will finish this liter of fluids. Hold his lisinopril and his Lasix and Invokana. Repeat lab work tomorrow. Do q.i.d. Accu-Cheks for diabetes. Order insulin. If further bleeding or concerns with the nose, would need possible transfer to ENT in [place]. The patient elects to be a code level 1. MKA: 09/28/2018 16:07:50 MODL: 09/28/2018 18:16:36 /[id number]
[2018-09-28] MEDS: Metoprolol Tartrate 50 MG Tab**OWN MED PO SCH (18:58)
[2018-09-28] MEDS: Insulin Lispro 100 Unit/ML 3 ML KwikPen SUBCUT SCH (18:58)
[2018-09-28] MEDS: metFORMIN 500 MG Tab**OWN MED PO SCH (18:58)
[2018-09-28] MEDS ORDERED: Gabapentin 100 MG Cap**OWN MED PO SCH (20:00)
[2018-09-28] MEDS ORDERED: Venlafaxine 75 MG Cap.ER**OWN MED PO SCH (20:00)
[2018-09-28] MEDS ORDERED: Isosorbide Mononitrate 30 MG Tab.ER**OWN MED PO SCH (20:00)
[2018-09-28] MEDS ORDERED: Melatonin 3 MG Tab PO SCH (20:00)
[2018-09-28] MEDS ORDERED: Fluticasone-Salmeterol 113-14 MCG Powder Inhalant INH SCH (20:00)
[2018-09-28] MEDS ORDERED: MELATONIN 5 MG PO SCH (20:00)
[2018-09-28] MEDS ORDERED: Latanoprost 0.005% Ophth Soln 2.5 ML Bottle EYEBOTH SCH (20:00)
[2018-09-28] MEDS ORDERED: ROSUVASTATIN 40 MG **OWN MED PO SCH (20:00)
[2018-09-28] MEDS: Hypromellose 0.3% Ophth Soln 15 ML Bottle EYEBOTH SCH (20:23)
[2018-09-29 06:54] LABS: CHLORIDE,CL 102 mmol/L (98-107); SODIUM,NA 138 mmol/L (136-145)
[2018-09-29 06:55] LABS: ANION GAP 13.8 mmol/L (10-20)
[2018-09-29] MEDS ORDERED: Pantoprazole 40 MG Tab.CR**OWN MED PO SCH (07:00)
[2018-09-29] MEDS ORDERED: Metoprolol Tartrate 25 MG Tab**OWN MED PO SCH (08:00)
[2018-09-29] MEDS ORDERED: Fluticasone-Salmeterol 113-14 MCG Powder Inhalant INH SCH (08:00)
[2018-09-29] MEDS ORDERED: prednisoLONE Acetate 1% Ophth Susp 5 ML Bottle EYEBOTH SCH (08:00)
[2018-09-29] MEDS ORDERED: TRESIBA SUBCUT SCH (08:00)
[2018-09-29] MEDS: Metoprolol Tartrate 50 MG Tab**OWN MED PO SCH (08:35)
[2018-09-29] MEDS: metFORMIN 500 MG Tab**OWN MED PO SCH (08:36)
[2018-09-29] MEDS: Insulin Lispro 100 Unit/ML 3 ML KwikPen SUBCUT SCH ×2 (08:45→12:19)
[2018-09-29] MEDS: Hypromellose 0.3% Ophth Soln 15 ML Bottle EYEBOTH SCH (12:18)
--- NOTE | 2018-09-29 13:51 | CR ---
[id number] RAD/RAD Hand Left 2V Exam: RAD Hand Left 2V Indication:PAIN. Comparison: No prior imaging for comparison. Discussion: Mild changes of osteoarthritis scattered throughout the hand and wrist. Intervertebral disc heights remain well-preserved. No fracture, dislocation, AVN, or erosive changes. Lateral view demonstrates soft tissue swelling along the dorsal aspect of the hand. Impression: As above. Colby Maldonado MD 09/29/18 0617 Thank you for allowing us to participate in the care of your patient.
--- NOTE | 2018-09-29 14:59 | PCM.SN ---
- Free Text/Narrative Note: addendum to vitals for admit 97.3 temp, BP 91/48, HR 64, RR 18, O2 93 % on RA
--- NOTE | 2018-09-29 19:32 | DISCH ---
PRIMARY DISCHARGE DIAGNOSES: 1. Ground level fall with probable loss of consciousness. 2. Hypotension, likely contributing to the fall. 3. Renal insufficiency, likely due to dehydration. 4. Epistaxis with anticoagulation controlled. 5. Dizziness and history of Meniere disease. 6. Hyperglycemia with type 2 diabetes, on long-term insulin with complications of polyneuropathy. 7. Moderate aortic stenosis. 8. History of coronary artery disease with previous coronary artery bypass grafting. 9. Chronic diastolic heart failure, not in any heart failure during his stay. 10.Depression and anxiety, longstanding. 11.Essential hypertension with hypotension due to medications, lisinopril and Lasix stopped. 12.Gastroesophageal reflux disease without esophagitis. 13.Factor V Leiden with recurrent pulmonary embolisms, on Coumadin, therapeutic. 14.History of prostate cancer. 15.History of urinary tract infection. He was having no trouble voiding on his stay. He was having no urinary symptoms. 16.Obesity. 17.Sleep apnea, on CPAP. Unable to tolerate CPAP due to nasal fractures. He was given home oxygen 2 L at night to use. 18.Reactive airway disease that is not asthma. 19.Previous colon polyps. 20.Nasal fractures, specifically slightly depressed bilateral nasal bones and nondisplaced anterior bony nasal septum. 21.Facial lacerations, did not require suturing. REASON FOR ADMISSION: On the date of admission, this 73-year-old male had just finished eating. He was feeling pretty unwell, weak, dizzy, tried walking back out to his car and started falling, not sure if he lost consciousness, but he does remember the sidewalk coming up toward him and was there for about 5-10 minutes before they got help. In the emergency room, he had multiple blood pressures that were below 100, even into the 80/50 range. He was given 1 L of fluid bolus. Blood pressures did improve. He was alert, he was answering questions appropriately. He was denying any headache. His blood sugar was over 200. He is on insulin. He is on Invokana, but his creatinine was up to 1.5 when his baseline in the clinic, had recently been checked, and he was at 1.3, and previous to that he was even better. He has had a similar episode of not feeling well, short of breath, and was evaluated in [place] a couple of months ago, reported to have UTI, got Cipro, although his culture was negative. He had a negative PE protocol. His INR was therapeutic at 2.1. We did hold his dose. He had no further bleeding from his nose. He required only local control. He had a bladder scan that did not show any postvoid residual. He was up, he was walking with PT like 200 feet, only required 1 break. He did have some dizziness at times, but nothing that was super limiting for him, and did have some trouble once getting to the bathroom as his glasses were broke and he did not have any assistance. Discussed with him and his daughters about returning home with home health. Other considerations would be to stay in the hospital. However, he did well enough with PT that it was going to be on a self-pay basis. Other considerations are trying the [facility]. At this point, they felt that he could return home. One of his daughters planned to stay at least tonight to see how things were going. DISCHARGE PLANS AND INSTRUCTIONS: The patient is going home with [facility]. The patient is going to have oxygen [address] of CPAP over the next several weeks until these nasal fractures heal probably for 1 month. He will check with the health football coach in 1 week, Dr. Yanez in 2 weeks with lab, which has all been ordered previously for diabetes. He will be stopping Lasix and lisinopril for now. He will keep insulin doses the same, but Invokana is decreased to 100. He will have no driving until his followup. He did have an x- ray of his hand which did not show any fracture. He will resume his previous INR dosing with 7.5 mg daily and 5 mg on Fridays. Do anticipate that he may be slightly on the lower end of range, but he was 2.0 today due to the fact we held the dose. He is also on aspirin. His next INR is due on the and this could be drawn by Home Health. The patient will need home health for teaching and assessments of wound cares for his facial lacerations along with monitoring of blood pressures at least twice a week due to hypotension and recurrent dizziness and falls. He will also need PT to help with gait and endurance. The patient has decreased endurance and leg weakness probably due to impaired mobility from his recent fall and his diabetes with underlying neuropathy. He will require PT assessments at home. He is homebound due to his recent fall. He should not leave his home without the assistance of another person due to fall risk and he should not drive. I will periodically review this plan of care. PHYSICAL EXAMINATION: Vital Signs: Temperature 97.9, pulse 72, blood pressure 104/52, respiratory rate 18, O2 of 96 on room air. General: He is in no acute distress. Heart: Regular rate and rhythm. S1, S2 without murmur. Lungs: Lung sounds are clear to auscultation bilaterally without crackles or wheezes. Abdomen: Has positive bowel sounds, it is soft, nontender. Extremities: Warm and dry. Does have some edema and tenderness over that left hand, but there was no fracture noted. Mental Status: He is alert and orientated x3. The nasal area is patent. He does have no active bleeding. Laceration is noted to his area between his nose and lip as well as his area of the forehead all looked clean, stable with no active bleeding. The patient is also being scheduled for an outpatient echo for followup on aortic stenosis. Greater than 30 minutes spent on the discharge process. MKA: 09/29/2018 14:55:23 MODL: 09/29/2018 19:23:33 /[id number]
== END 2018-09-29 16:10 | disposition home health service (06) ==
LOC: VM.ED 14:00 → VM.MS 15:03
PROVIDERS: ADMIT Internal Medicine; ATTEND Internal Medicine
DX: S02.2XXA Fracture of nasal bones, initial encounter for closed fracture (principal); S01.511A Laceration without foreign body of lip, initial encounter; S01.81XA Laceration without foreign body of other part of head, initial encounter; N28.9 Disorder of kidney and ureter, unspecified; E11.65 Type 2 diabetes mellitus with hyperglycemia; E11.42 Type 2 diabetes mellitus with diabetic polyneuropathy; I35.0 Nonrheumatic aortic (valve) stenosis; I25.10 Atherosclerotic heart disease of native coronary artery without angina pectoris; I11.0 Hypertensive heart disease with heart failure; I50.32 Chronic diastolic (congestive) heart failure; K21.9 Gastro-esophageal reflux disease without esophagitis; F32.9 Major depressive disorder, single episode, unspecified; F41.9 Anxiety disorder, unspecified; J98.8 Other specified respiratory disorders; D68.51 Activated protein C resistance; I95.2 Hypotension due to drugs; T46.4X5A Adverse effect of angiotensin-converting-enzyme inhibitors, initial encounter; T50.1X5A Adverse effect of loop [high-ceiling] diuretics, initial encounter; H81.03 Meniere's disease, bilateral; G47.33 Obstructive sleep apnea (adult) (pediatric); M19.90 Unspecified osteoarthritis, unspecified site; E66.9 Obesity, unspecified; Z68.39 Body mass index [BMI] 39.0-39.9, adult; W18.30XA Fall on same level, unspecified, initial encounter; Y93.89 Activity, other specified; Z95.5 Presence of coronary angioplasty implant and graft; Z98.84 Bariatric surgery status; Z90.79 Acquired absence of other genital organ(s); Z99.89 Dependence on other enabling machines and devices; Z98.890 Other specified postprocedural states; Z86.010 Personal history of colon polyps; Z86.711 Personal history of pulmonary embolism; Z85.46 Personal history of malignant neoplasm of prostate; Z87.440 Personal history of urinary (tract) infections; Z91.040 Latex allergy status; Z88.0 Allergy status to penicillin; Z88.8 Allergy status to other drugs, medicaments and biological substances; Z79.01 Long term (current) use of anticoagulants; Z79.4 Long term (current) use of insulin; Z79.82 Long term (current) use of aspirin; Z79.899 Other long term (current) drug therapy
CPT/HCPCS: 36415; 51798; 70450; 70486; 71045; 72125; 73120; 80048; 80053; 82550; 82962; 83735; 83880; 84484; 85025; 85610; 93005; 96360; 96361; 97161; 97530; 99285; A9270; G0378; J1815; J7030; 99284-GF

== ENCOUNTER 2020-04-25 18:42 | Inpatient (IN) | payer MEDICARE, OTHER ==
--- NOTE | 2020-04-25 18:54 | EDM.PDOC ---
ED HPI GENERAL MEDICAL PROBLEM - General Stated Complaint: STROKE CODE Time Seen by Provider: 04/25/20 18:48 Source of Information: Reports: EMS History Limitations: Reports: No Limitations - History of Present Illness INITIAL COMMENTS - FREE TEXT/NARRATIVE: Pt. presents to ER via EMS. Initially a stroke code was erroneously called by EMS. This was changed to a trauma code as it is head trauma in an anticoagulated patient. Pt. states that he has been feeling poorly all day after having his second covid 19 immunization yesterday. He states that he has been fatigued, weak, chilled throughout the day today. He complains of severe myalgias and arthralgias. Pt. states that he "passed out", falling and striking the back of his head/neck on a toilet. States that he felt lightheaded prior to the fall. He states that he has not been eating or drinking like he should. His primary complaint is of head and neck pain post fall. Remembers striking his head, there was no LOC. EMS summoned. They relate that the patient was experiencing some expressive aphasia on scene. He offers no other complaint. No chest pain. No shortness of breath or chest trauma. Denies any current pelvic or extremity trauma. No cough or chest congestion. Denies any dysuria, frequency, or urgency. Onset: Today Location: Reports: Generalized - Related Data Allergies Allergy/AdvReac Type Severity Reaction Status Date / Time liraglutide [From Victoza] Allergy Severe Anaphylactic Verified 09/28/18 16:07 Shock Latex, Natural Rubber Allergy Rash Verified 09/28/18 16:07 Penicillins Allergy Rash Verified 09/28/18 16:07 Beta-Blockers AdvReac Hypotension Verified 09/28/18 16:07 (Beta-Adrenergic Bloc Home Meds: Home Meds Albuterol [IJD: Albuterol HFA] 1 - 2 puff PO Q4H PRN 05/27/17 [History] Gabapentin [Neurontin] 500 mg PO BEDTIME 05/27/17 [History] Isosorbide Mononitrate [Imdur] 30 mg PO BEDTIME 05/27/17 [History] Latanoprost [Xalatan 0.005% Ophth Soln] 1 drop EYEBOTH BEDTIME 05/27/17 [History] Metoprolol Tartrate [Lopressor] 25 mg PO BIDMEALS 05/27/17 [History] Nitroglycerin [Nitrostat] 0.4 mg PO ASDIRECTED PRN 05/27/17 [History] Pantoprazole Sodium [Protonix] 40 mg PO DAILY 05/27/17 [History] Rosuvastatin [Crestor] 40 mg PO DAILY 05/27/17 [History] Venlafaxine [Effexor XR] 150 mg PO DAILY 05/27/17 [History] metFORMIN HCl [Metformin HCl] 1,000 mg PO BIDMEALS 05/27/17 [History] Acetaminophen [Tylenol Extra Strength] 1,000 mg PO BID PRN 09/28/18 [History] Aspirin 325 mg PO DAILY 09/28/18 [History] Fexofenadine [Lamar] 60 mg PO BID PRN 09/28/18 [History] HCTZ/Triamterene [Maxzide 25-37.5 MG] 1 tab PO Q2D 09/28/18 [History] Insulin Degludec [Tresiba] 58 unit SQ DAILY 09/28/18 [History] Melatonin 10 mg PO BEDTIME 09/28/18 [History] Non-Formulary Medication [NF Drug] 2 puff INH BID 09/28/18 [History] Sennosides/Docusate Sodium [Senna-Docusate Sodium Tablet] 1 tab PO BID PRN 09/28/18 [History] Warfarin Sodium [Jantoven] 5 mg PO FR 09/28/18 [History] cycloSPORINE [Restasis Multidose] 1 drop EYEBOTH DAILY 09/28/18 [History] prednisoLONE acetate [Pred Forte 1% Ophth Susp] 1 drop EYEBOTH DAILY 09/28/18 [History] Canagliflozin [Invokana] 100 mg PO DAILY #30 tablet 09/29/18 [Rx] Warfarin [Coumadin] 7.5 mg PO SUMOTUWETHSA 09/29/18 [History] Past Medical History HEENT History: Reports: Cataract, Glaucoma, Other (See Below) Other HEENT History: menieres disease Cardiovascular History: Reports: Aneurysm, Blood Clots/VTE/DVT, CAD, Heart Failure, Heart Murmur, Hypertension, SOB on Exertion Respiratory History: Reports: Sleep Apnea, Other (See Below) Other Respiratory History: pt says he might have COPD, reactive airway disease Gastrointestinal History: Reports: Colon Polyp, GERD, Other (See Below) Other Gastrointestinal History: dysphagia Genitourinary History: Reports: Renal Calculus Musculoskeletal History: Reports: Arthritis Neurological History: Reports: Other (See Below) Other Neuro History: mononeuritis Psychiatric History: Reports: Anxiety, Depression Endocrine/Metabolic History: Reports: Diabetes, Type II, Obesity/BMI 30+ Hematologic History: Reports: Other (See Below) Other Hematologic History: heterozygous factor V Leiden mutation Immunologic History: Reports: None Oncologic (Cancer) History: Reports: Prostate Dermatologic History: Reports: Eczema - Infectious Disease History Infectious Disease History: Reports: None - Past Surgical History HEENT Surgical History: Reports: Cataract Surgery Other HEENT Surgeries/Procedures: cornea transplant bilateral Cardiovascular Surgical History: Reports: Coronary Artery Bypass, Coronary Artery Stent GI Surgical History: Reports: Bariatric Procedure, Colonoscopy Male Surgical History: Reports: Prostatectomy Other Oncologic Surgeries/Procedures: prostatectomy Social & Family History - Family History HEENT: Reports: None Cardiac: Reports: Afib, CAD Respiratory: Reports: None GI: Reports: None OBGYN: Reports: None Musculoskeletal: Reports: None Neurological: Reports: Alzheimers Disease Psychiatric: Reports: None Endocrine/Metabolic: Reports: None Hematologic: Reports: None Immunologic: Reports: None Dermatologic: Reports: None Oncologic: Reports: None - Caffeine Use Caffeine Use: Reports: Coffee ED ROS GENERAL - Review of Systems Review Of Systems: See Below Constitutional: Reports: Fever, Chills, Malaise, Fatigue HEENT: Reports: No Symptoms Respiratory: Reports: No Symptoms Cardiovascular: Reports: Syncope Endocrine: Reports: No Symptoms GI/Abdominal: Reports: No Symptoms : Reports: No Symptoms Musculoskeletal: Reports: No Symptoms Skin: Reports: No Symptoms Neurological: Reports: No Symptoms Psychiatric: Reports: No Symptoms Hematologic/Lymphatic: Reports: No Symptoms Immunologic: Reports: No Symptoms ED EXAM, GENERAL - Physical Exam Exam: See Below Exam Limited By: No Limitations General Appearance: Alert, WD/WN, No Apparent Distress Eye Exam: Bilateral Eye: EOMI, Normal Fundi, Normal Inspection, PERRL Ears: Normal External Exam, Normal Canal, Hearing Grossly Normal, Normal TMs Ear Exam: Bilateral Ear: Auricle Normal, Canal Normal, TM normal Nose: Normal Inspection, No Blood Throat/Mouth: Normal Inspection, Normal Lips, Normal Teeth, Normal Gums, Normal Oropharynx, Normal Voice, No Airway Compromise Head: Atraumatic, Normocephalic Neck: Normal Inspection, Supple, Non-Tender, Full Range of Motion Respiratory/Chest: No Respiratory Distress, Lungs Clear, Normal Breath Sounds, No Accessory Muscle Use, Chest Non-Tender Cardiovascular: Regular Rate, Rhythm, No Edema, No JVD, No Murmur Peripheral Pulses: 4+: Radial (L) GI/Abdominal: Soft, Non-Tender, No Distention, No Mass, Pelvis Stable (Male) Exam: Deferred Rectal (Males) Exam: Deferred Back Exam: Normal Inspection, Full Range of Motion Extremities: Normal Inspection, Normal Range of Motion, Non-Tender, No Pedal Edema, Normal Capillary Refill Neurological: Alert, Oriented, CN II-XII Intact, Normal Cognition, Normal Reflexes, No Motor/Sensory Deficits Psychiatric: Normal Affect, Normal Mood Skin Exam: Warm, Dry, Intact, Pallor, Other (Numerous actinic keratoses to anterior and posterior chest. No obvious cellulitis.) Lymphatic: No Adenopathy #1 Interpretation Rhythm: NSR [place]: Normal P-Wave: Present QRS: RBBB ST-T: Normal QT: Normal Comparison: No Change Course - Vital Signs Last Recorded V/S: Last Vital Signs Temp 39.7 C H 04/25/20 19:33 Pulse Resp BP Pulse Ox - Orders/Labs/Meds Orders: Active Orders 24 hr Category Date Time Status EKG Documentation Completion [RC] STAT Care 04/25/20 18:44 Active COVID-19/FLU A+B [MOLEC] Stat Lab 04/25/20 20:19 Received CULTURE BLOOD [BC] Stat Lab 04/25/20 19:16 Received CULTURE BLOOD [BC] Stat Lab 04/25/20 19:25 Received CULTURE URINE [RM] Stat Lab 04/25/20 20:25 Received REFLEX LACTIC ACID YES OR NO [CHEM] Routine Lab 04/25/20 20:03 Received Sodium Chloride 0.9% [Saline Flush] Med 04/25/20 18:44 Active 10 ml FLUSH ASDIRECTED PRN Blood Culture x2 Reflex Set [OM.PC] Stat Oth 04/25/20 19:06 Ordered Peripheral IV Insertion Adult [OM.PC] Routine Oth 04/25/20 18:45 Ordered Medication Orders Sodium Chloride (Saline Flush) 10 ml FLUSH ASDIRECTED PRN PRN Reason: Keep Vein Open Labs: Laboratory Tests 04/25/20 04/25/20 04/25/20 Range/Units 19:03 19:03 19:03 WBC 8.1 (4.0-10.0) x10^3/uL RBC 4.67 (4.5-6.0) x10^6/uL Hgb 13.8 L D (14.0-18.0) g/dL Hct 42.7 (40.0-52.0) % MCV 91.4 (78.0-93.0) fL MCH 29.6 (26.0-32.0) pg MCHC 32.3 (32.0-36.0) g/dL RDW Coeff of Kim 16.7 H (10.0-15.0) % Plt Count 166 (130-400) x10^3/uL Add Manual Diff Yes Neutrophils % (Manual) 73 (50-80) % Band Neutrophils % 6 (0-6) % Lymphocytes % (Manual) 11 L (25-50) % Reactive Lymphs % 2 H (0) % Monocytes % (Manual) 7 (2-11) % Metamyelocytes % 1 H (0) % Platelet Estimate Adequate Rouleaux 1+ slight H PT 23.4 H (9.9-12.5) SEC INR 2.1 (2.0-3.5) APTT (25.6-32.8) SEC Sodium 135 L (136-145) mmol/L Potassium 4.2 (3.5-5.1) mmol/L Chloride 94 L (98-107) mmol/L Carbon Dioxide 27 (21-32) mmol/L Anion Gap 18.2 H (5-15) mmol/L BUN 26 H (7-18) mg/dL Creatinine 1.2 (0.70-1.30) mg/dL Est Cr Clr Drug Dosing TNP Estimated GFR (MDRD) 59 Glucose 218 H (74-106) mg/dL Lactic Acid (0.4-2.0) mmol/L Calcium 9.3 (8.5-10.1) mg/dL Corrected Calcium 9.54 (8.5-10.1) mg/dL Total Bilirubin 0.6 (0.2-1.0) mg/dL AST 16 (15-37) U/L ALT 32 (16-63) U/L Alkaline Phosphatase 62 (46-116) U/L Lactate Dehydrogenase (85-227) U/L POC Troponin I (0.00-0.08) ng/mL C-Reactive Protein (<=0.9) mg/dL Total Protein 8.0 (6.4-8.2) g/dL Albumin 3.7 (3.4-5.0) g/dL Globulin 4.3 Albumin/Globulin Ratio 0.86 Urine Color (YELLOW) Urine Appearance (CLEAR) Urine pH (5.0-8.0) Ur Specific Ponce Urine Protein (NEGATIVE) mg/dL Urine Glucose (UA) (NEGATIVE) mg/dL Urine Ketones (NEGATIVE) mg/dL Urine Occult Blood (NEGATIVE) Urine Nitrite (NEGATIVE) Urine Bilirubin (NEGATIVE) Urine Urobilinogen (0.2) EU/dL Ur Leukocyte Esterase (NEGATIVE) Urine RBC (NOT SEEN) /HPF Urine WBC (NOT SEEN) /HPF Ur Squamous Epith Cells (NEGATIVE) /HPF Urine Bacteria (NEGATIVE) /HPF Urine Mucus (NEGATIVE) /LPF Ethyl Alcohol < 3 (0-3) mg/dL 04/25/20 04/25/20 04/25/20 Range/Units 19:03 19:03 19:03 WBC (4.0-10.0) x10^3/uL RBC (4.5-6.0) x10^6/uL Hgb (14.0-18.0) g/dL Hct (40.0-52.0) % MCV (78.0-93.0) fL MCH (26.0-32.0) pg MCHC (32.0-36.0) g/dL RDW Coeff of Kim (10.0-15.0) % Plt Count (130-400) x10^3/uL Add Manual Diff Neutrophils % (Manual) (50-80) % Band Neutrophils % (0-6) % Lymphocytes % (Manual) (25-50) % Reactive Lymphs % (0) % Monocytes % (Manual) (2-11) % Metamyelocytes % (0) % Platelet Estimate Rouleaux PT (9.9-12.5) SEC INR (2.0-3.5) APTT 31.5 (25.6-32.8) SEC Sodium (136-145) mmol/L Potassium (3.5-5.1) mmol/L Chloride (98-107) mmol/L Carbon Dioxide (21-32) mmol/L Anion Gap (5-15) mmol/L BUN (7-18) mg/dL Creatinine (0.70-1.30) mg/dL Est Cr Clr Drug Dosing Estimated GFR (MDRD) Glucose (74-106) mg/dL Lactic Acid 3.8 H* (0.4-2.0) mmol/L Calcium (8.5-10.1) mg/dL Corrected Calcium (8.5-10.1) mg/dL Total Bilirubin (0.2-1.0) mg/dL AST (15-37) U/L ALT (16-63) U/L Alkaline Phosphatase (46-116) U/L Lactate Dehydrogenase 169 (85-227) U/L POC Troponin I (0.00-0.08) ng/mL C-Reactive Protein 1.2 H (<=0.9) mg/dL Total Protein (6.4-8.2) g/dL Albumin (3.4-5.0) g/dL Globulin Albumin/Globulin Ratio Urine Color (YELLOW) Urine Appearance (CLEAR) Urine pH (5.0-8.0) Ur Specific [place]once Urine Protein (NEGATIVE) mg/dL Urine Glucose (UA) (NEGATIVE) mg/dL Urine Ketones (NEGATIVE) mg/dL Urine Occult Blood (NEGATIVE) Urine Nitrite (NEGATIVE) Urine Bilirubin (NEGATIVE) Urine Urobilinogen (0.2) EU/dL Ur Leukocyte Esterase (NEGATIVE) Urine RBC (NOT SEEN) /HPF Urine WBC (NOT SEEN) /HPF Ur Squamous Epith Cells (NEGATIVE) /HPF Urine Bacteria (NEGATIVE) /HPF Urine Mucus (NEGATIVE) /LPF Ethyl Alcohol (0-3) mg/dL 04/25/20 04/25/20 Range/Units 19:05 20:25 WBC (4.0-10.0) x10^3/uL RBC (4.5-6.0) x10^6/uL Hgb (14.0-18.0) g/dL Hct (40.0-52.0) % MCV (78.0-93.0) fL MCH (26.0-32.0) pg MCHC (32.0-36.0) g/dL RDW Coeff of Kim (10.0-15.0) % Plt Count (130-400) x10^3/uL Add Manual Diff Neutrophils % (Manual) (50-80) % Band Neutrophils % (0-6) % Lymphocytes % (Manual) (25-50) % Reactive Lymphs % (0) % Monocytes % (Manual) (2-11) % Metamyelocytes % (0) % Platelet Estimate Rouleaux PT (9.9-12.5) SEC INR (2.0-3.5) APTT (25.6-32.8) SEC Sodium (136-145) mmol/L Potassium (3.5-5.1) mmol/L Chloride (98-107) mmol/L Carbon Dioxide (21-32) mmol/L Anion Gap (5-15) mmol/L BUN (7-18) mg/dL Creatinine (0.70-1.30) mg/dL Est Cr Clr Drug Dosing Estimated GFR (MDRD) Glucose (74-106) mg/dL Lactic Acid (0.4-2.0) mmol/L Calcium (8.5-10.1) mg/dL Corrected Calcium (8.5-10.1) mg/dL Total Bilirubin (0.2-1.0) mg/dL AST (15-37) U/L ALT (16-63) U/L Alkaline Phosphatase (46-116) U/L Lactate Dehydrogenase (85-227) U/L POC Troponin I 0.00 (0.00-0.08) ng/mL C-Reactive Protein (<=0.9) mg/dL Total Protein (6.4-8.2) g/dL Albumin (3.4-5.0) g/dL Globulin Albumin/Globulin Ratio Urine Color Yellow (YELLOW) Urine Appearance Slightly cloudy H (CLEAR) Urine pH 5.5 (5.0-8.0) Ur Specific [place] 1.015 Urine Protein 30 H (NEGATIVE) mg/dL Urine Glucose (UA) 500 H (NEGATIVE) mg/dL Urine Ketones Trace H (NEGATIVE) mg/dL Urine Occult Blood Trace-lysed H (NEGATIVE) Urine Nitrite Negative (NEGATIVE) Urine Bilirubin Negative (NEGATIVE) Urine Urobilinogen 0.2 (0.2) EU/dL Ur Leukocyte Esterase Moderate H (NEGATIVE) Urine RBC 5-10 H (NOT SEEN) /HPF Urine WBC 20-30 H (NOT SEEN) /HPF Ur Squamous Epith Cells Many H (NEGATIVE) /HPF Urine Bacteria Rare (NEGATIVE) /HPF Urine Mucus Not seen (NEGATIVE) /LPF Ethyl Alcohol (0-3) mg/dL Meds: Medications Generic Name Dose Route Start Last Admin Trade Name Kathy PRN Reason Stop Dose Admin Sodium Chloride 10 ml 04/25/20 18:44 Saline Flush FLUSH ASDIRECTED PRN Keep Vein Open Discontinued Medications Generic Name Dose Route Start Last Admin Trade Name Freelisa PRN Reason Stop Dose Admin Acetaminophen 1,000 mg 04/25/20 19:20 04/25/20 19:33 Tylenol Extra Strength PO 04/25/20 19:21 1,000 mg ONETIME ONE Administration Ceftriaxone Sodium 2 gm 04/25/20 20:44 Rocephin IVPUSH 04/25/20 20:45 STAT ONE Sodium Chloride 500 mls @ 500 mls/hr 04/25/20 19:10 Normal Saline IV 04/25/20 20:09 ONETIME ONE - Radiology Interpretation Free Text/Narrative:: CT brain was negative for acute pathology CT c-spine negative for acute pathology. 1 view chest x-ray obtained. Small portion of the R costophrenic angle was clipped, but no obvious infiltrate was noted. He did have some cardiomegaly. - Re-Assessments/Exams Free Text/Narrative Re-Assessment/Exam: Initially, stroke code was called for this patient. This was changed to a trauma code; see HPI. Was initially sent to CT for head CT of brain and cervical spine. Pt. was unable to provide a UA, so there was a delay in starting his antibiotics within an hour/due to the fact that the priority was traumatic injury. Departure - Departure Time of Disposition: 20:54 Disposition: Refer to Observation Clinical Impression: UTI (urinary tract infection), Sepsis, Closed head injury - Discharge Information Referrals: Jaycee Yanez DO [Primary Care Provider] - Sepsis Event Note (ED) - Focused Exam Vital Signs: Vital Signs Temp 04/25/20 19:33 39.7 C H - Problem List Review Problem List Initiated/Reviewed/Updated: Yes - My Orders Last 24 Hours: My Active Orders 04/25/20 18:44 EKG Documentation Completion [RC] STAT Sodium Chloride 0.9% [Saline Flush] 10 ml FLUSH ASDIRECTED PRN 04/25/20 18:45 Peripheral IV Insertion Adult [OM.PC] Routine 04/25/20 19:06 Blood Culture x2 Reflex Set [OM.PC] Stat 04/25/20 19:16 CULTURE BLOOD [BC] Stat 04/25/20 19:25 CULTURE BLOOD [BC] Stat 04/25/20 20:03 REFLEX LACTIC ACID YES OR NO [CHEM] Routine 04/25/20 20:19 COVID-19/FLU A+B [MOLEC] Stat 04/25/20 20:25 CULTURE URINE [RM] Stat - Assessment/Plan Admission H&P: Please use this note as an admission H&P Last 24 Hours: My Active Orders 04/25/20 18:44 EKG Documentation Completion [RC] STAT Sodium Chloride 0.9% [Saline Flush] 10 ml FLUSH ASDIRECTED PRN 04/25/20 18:45 Peripheral IV Insertion Adult [OM.PC] Routine 04/25/20 19:06 Blood Culture x2 Reflex Set [OM.PC] Stat 04/25/20 19:16 CULTURE BLOOD [BC] Stat 04/25/20 19:25 CULTURE BLOOD [BC] Stat 04/25/20 20:03 REFLEX LACTIC ACID YES OR NO [CHEM] Routine 04/25/20 20:19 COVID-19/FLU A+B [MOLEC] Stat 04/25/20 20:25 CULTURE URINE [RM] Stat Plan: Pt. will be admitted observation. Discussed findings briefly with Dr. Yanez. He indicates he was a code 1. He was given his first dose of rocephin 2gm in ER. He had a total of 1 liter of NS in ER. Will continue fluids at 125ml/hr. for now. Will trend his lactic acid. Will recheck his troponin this evening as well. Urine was cultured, as was blood. He was somewhat upset he was being admitted but was reassured this was needed. Pt. will be rounded on by Dr. Yanez tomorrow. She is off the weekend, so if the patient does not go home, he will need to be followed either by our service or by hospitalist. Recheck CBC, CMP, lactic acid in AM.
[2020-04-25] MEDS ORDERED: Sodium Chloride 0.9% 500 ML IV ONE (19:10)
[2020-04-25] MEDS ORDERED: Acetaminophen 500 MG Tab PO ONE (19:20)
--- NOTE | 2020-04-25 19:30 | CT ---
[id number] CT/CT Head WO IV EXAM: NONCONTRAST HEAD CT INDICATION: STROKE CODE COMPARISON: September 28, 2018. DISCUSSION: Streak artifact from dental fillings somewhat limits assessment of the posterior fossa and lower occipital lobes. Stable moderate generalized atrophy. Mild to moderate scattered white matter hypoattenuation is nonspecific, but similar to the prior study and most suggestive of chronic small vessel ischemia. No mass effect or midline shift. No acute hemorrhage or extra-axial fluid collection. No acute territorial infarct is identified. A limited look at the orbits and paranasal sinuses is unremarkable. Results called at 7:22 PM on 04/25/2020. IMPRESSION: 1. No acute findings. Champ Calvo MD 04/25/20 1929 Thank you for allowing us to participate in the care of your patient.
--- NOTE | 2020-04-25 19:34 | CT ---
[id number] CT/CT Cervical Spine WO IV EXAM: NONCONTRAST CERVICAL SPINE CT INDICATION: STROKE CODE. Fall with head trauma. COMPARISON: September 28, 2018. DISCUSSION: The vertebral bodies are normal in height and alignment. No fracture or suspicious osseous lesion is identified. Mild to moderate disc degeneration C4-C5 through C7-T1. Mild to moderate diffuse cervical facet arthropathy. Small volume fluid in the right maxillary sinus. Sternotomy. Surgical changes within the right mastoid air cells. IMPRESSION: 1. No evidence of acute cervical spine trauma. Champ Calvo MD 04/25/20 1933 Thank you for allowing us to participate in the care of your patient.
[2020-04-25 19:43] LABS: CHLORIDE,CL 94 mmol/L (98-107); SODIUM,NA 135 mmol/L (136-145)
[2020-04-25 19:47] LABS: ANION GAP 18.2 mmol/L (5-15)
--- NOTE | 2020-04-25 19:47 | CR ---
[id number] RAD/RAD Chest Portable EXAM: PORTABLE CHEST INDICATION: FEVER, CHILLS COMPARISON: September 28, 2018. DISCUSSION: The right costophrenic angle is excluded from the [id number] of this study. Body habitus mildly limits assessment. Cardiomegaly with borderline central vascular congestion. No acute infiltrates are identified. Sternotomy. IMPRESSION: 1. Cardiomegaly with borderline central vascular congestion. Champ Calvo MD 04/25/20 [id number] Thank you for allowing us to participate in the care of your patient.
[2020-04-25] MEDS ORDERED: cefTRIAXone 2 GM Vial IVPUSH ONE (20:44)
[2020-04-25 21:06] LABS: CORONAVIRUS COVID-19 NAA NEGATIVE (NEGATIVE)
[2020-04-25] MEDS: Sodium Chloride 0.9% 10 ML Syringe FLUSH PRN (23:08)
[2020-04-26] MEDS ORDERED: Meclizine 25 MG Tab PO PRN (01:11)
[2020-04-26] MEDS ORDERED: Loratadine 10 MG Tab PO PRN (01:11)
[2020-04-26] MEDS ORDERED: Acetaminophen 500 MG Tab PO PRN (01:11)
[2020-04-26] MEDS ORDERED: Albuterol 0.083% 2.5 MG/3 ML Neb Soln NEB PRN (01:11)
[2020-04-26] MEDS ORDERED: Diazepam 2 MG Tab PO PRN (01:15)
[2020-04-26] MEDS ORDERED: Glucagon,Human Recombinant 1 MG Vial IM PRN ×2 (01:15→12:33)
[2020-04-26] MEDS ORDERED: 50% Dextrose in Water 50 ML Syringe IV PRN ×2 (01:15→12:33)
[2020-04-26] MEDS ORDERED: Warfarin 5 MG Tab PO ONE (02:45)
[2020-04-26] MEDS: Omeprazole 20 MG Cap.CR PO SCH (06:24)
[2020-04-26] MEDS: Fluticasone-Salmeterol 113-14 MCG Powder Inhalant INH SCH ×2 (06:31→20:30)
[2020-04-26 07:00] LABS: CHLORIDE,CL 99 mmol/L (98-107); SODIUM,NA 136 mmol/L (136-145)
[2020-04-26 07:01] LABS: ANION GAP 14.7 mmol/L (5-15)
[2020-04-26] MEDS ORDERED: Hydrochlorothiazide/Triamterene 25-37.5 Tab PO SCH (08:00)
[2020-04-26] MEDS ORDERED: Ferrous Sulfate 325 MG Tab PO SCH (08:00)
[2020-04-26] MEDS: Insulin Regular, Human 100 Units/ML 3 ML Vial SUBCUT SCH ×2 (08:03→12:01)
[2020-04-26] MEDS: Insulin Glarg,Human.Rec.Analog 100 Unit/ML SUBCUT SCH (08:04)
[2020-04-26] MEDS: Aspirin 325 MG Tab.EC PO SCH (08:05)
[2020-04-26] MEDS: Metoprolol Tartrate 50 MG Tab PO SCH ×2 (08:05→17:47)
[2020-04-26] MEDS: atorvaSTATin 40 MG Tab PO SCH (08:06)
[2020-04-26] MEDS: Multivitamins with Iron/Calcium/Folic Acid/Minerals Tab PO SCH (08:06)
[2020-04-26] MEDS: Cyanocobalamin (Vitamin B12) 1,000 MCG Tab PO SCH (08:06)
[2020-04-26] MEDS: Venlafaxine 75 MG Cap.ER PO SCH (08:06)
[2020-04-26] MEDS: Ascorbic Acid 500 MG Tab PO SCH (09:43)
[2020-04-26] MEDS: Hydrocortisone 2.5% Crm 30 GM Tube TOP SCH ×2 (09:44→20:28)
[2020-04-26] MEDS: Insulin Lispro 100 Units/ML 3 ML Vial SUBCUT SCH ×3 (11:58→18:03)
--- NOTE | 2020-04-26 13:23 | PN ---
Progress Note for FATMATA MASON Date: 04/26/2020 Room #: VM.204 SUBJECTIVE: This is hospital day #2 for a 75-year-old admitted to observation last evening after presenting with a 103.4 fever, heart rate of 100, and a fall in his bathroom where he hit his head and back, but no bruising. He said that he had the COVID vaccine on the . His arm was red, a little bit sore, but he had also even prior to the vaccine been having some burning with urination and back pain. The patient was found to have a UTI and given IV Rocephin. He remained afebrile overnight except 100.5 at 3 a.m., and he tells me he had a rough night. He was especially chilled when he was back at his apartment complex. He did receive some IV fluids, but not full sepsis dosing. He does have a history of diastolic heart failure and his EF was 60% in 03/2020. He has been eating and drinking okay. He does not feel like vomiting. He has not had any cough. He is chronically short of breath just walking to the bathroom, that is unchanged. He also has coronary disease, but no current chest pain. OBJECTIVE: Vital Signs: The patient's weight is 127.7 kg, temperature 98, pulse 98, blood pressure 114/77, respiratory rate 16, and O2 of 98 on room air. It should be noted on his telemetry, he also had tachycardia up to 122. He has known atrial fibrillation. General: He is in no acute distress. Heart: Irregularly irregular with murmur. Lungs: Lung sounds are clear to auscultation bilaterally without crackles or wheezes. Abdomen: Nondistended. Positive bowel sounds. Nontender. Extremities: Warm and dry. No edema on the legs. On the right arm where he had his injection, there is a very firm area, but no abscess. No drainage. It is warm. There is also some dry skin. There is also some redness and dry skin also on the left upper arm. Mental Status: He is alert and orientated x3. Pupils are equal, round, reactive to light. Skin: Showed no bruising. LABORATORY DATA: Lab work did show his white count normal at 6.2, hemoglobin 13, platelets 145. Sodium 136, potassium 3.7, chloride 99, bicarb 26, BUN 23, creatinine 0.9, glucose 172. Lactic 1.6, but was 3.8 on admission. ALT and AST are normal. Calcium normal. Albumin 3.3. Urine showed 20 to 30 wbc's, 5 to 10 rbc's with culture pending. ASSESSMENT: 1. Sepsis with fever and chills related to a urinary tract infection, but also with the COVID vaccine compounding this. The patient does not need further fluids given his history of heart failure. We will just hold his Maxzide and allow him to eat and drink. He actually takes that more for Meniere's disease. We will continue the IV Rocephin 2 g daily and await urine culture. 2. Lactic acidosis, presumably worsened by his metformin. I am going to hold that for now. He is on Lantus 78 units daily. We will get his home Ozempic in here and start him on that to help blood sugars. We will continue q.i.d. checks. He is also on his meal insulin, 10 at lunch and 15 at supper and 10 at breakfast. 3. Atrial fibrillation with rapid ventricular response. We could consider increasing metoprolol. I will just watch at this point. Heart rates have already improved. His blood pressure is okay. He is on Coumadin. We will get an INR tomorrow. 4. Local reaction to COVID vaccine. We will just continue to monitor that. Put some ice on it. I do not think he needs any further medications for it. 5. Coronary artery disease. He is not having any chest pain. 6. Diastolic heart failure with [id number] aortic stenosis. His condition is stable. He does not need any further medications for that. 7. Fall, likely due to his acute illness. We will get him working with therapies. For DVT prophylaxis, the patient is therapeutic on Coumadin. 8. Mild anemia. We will continue to monitor. 9. Restless legs. He is on his Neurontin. 10. Diabetes PLAN: The patient will continue on acute cares with close blood sugar monitoring. We will get him up and working with therapies. We will continue IV antibiotics. We will monitor lab work. We will monitor his heart rates with telemetry. The patient will be upgraded to acute care as I expect him to stay 2 midnights. MKA: 04/26/2020 12:31:58 MODL: 04/26/2020 13:18:35 /[id number] RON
[2020-04-26] MEDS ORDERED: Warfarin 5 MG Tab PO SCH (20:00)
[2020-04-26] MEDS: Gabapentin 100 MG Cap PO SCH (20:28)
[2020-04-26] MEDS: Latanoprost 0.005% Ophth Soln 2.5 ML Bottle EYEBOTH SCH (20:28)
[2020-04-26] MEDS: Melatonin 3 MG Tab PO SCH (20:29)
[2020-04-26] MEDS: cefTRIAXone 2 GM Vial IVPUSH SCH (20:30)
[2020-04-26] MEDS: Sodium Chloride 0.9% 10 ML Syringe FLUSH PRN (20:31)
[2020-04-27] MEDS: Fluticasone-Salmeterol 113-14 MCG Powder Inhalant INH SCH ×2 (06:20→19:55)
[2020-04-27] MEDS: Omeprazole 20 MG Cap.CR PO SCH (06:21)
[2020-04-27] MEDS: Insulin Glarg,Human.Rec.Analog 100 Unit/ML SUBCUT SCH (07:54)
[2020-04-27] MEDS: Insulin Lispro 100 Units/ML 3 ML Vial SUBCUT SCH ×6 (07:55→18:47)
[2020-04-27] MEDS: Hydrocortisone 2.5% Crm 30 GM Tube TOP SCH ×2 (07:57→19:57)
[2020-04-27] MEDS: Multivitamins with Iron/Calcium/Folic Acid/Minerals Tab PO SCH (07:58)
[2020-04-27] MEDS: Ascorbic Acid 500 MG Tab PO SCH (07:58)
[2020-04-27] MEDS: atorvaSTATin 40 MG Tab PO SCH (07:58)
[2020-04-27] MEDS: Cyanocobalamin (Vitamin B12) 1,000 MCG Tab PO SCH (07:59)
[2020-04-27] MEDS: Ferrous Sulfate 325 MG Tab PO SCH (07:59)
[2020-04-27] MEDS: Aspirin 325 MG Tab.EC PO SCH (07:59)
[2020-04-27] MEDS: Venlafaxine 75 MG Cap.ER PO SCH (07:59)
[2020-04-27] MEDS: Metoprolol Tartrate 50 MG Tab PO SCH ×2 (07:59→19:58)
[2020-04-27 08:13] LABS: CHLORIDE,CL 99 mmol/L (98-107); SODIUM,NA 139 mmol/L (136-145)
[2020-04-27 08:28] LABS: ANION GAP 13.6 mmol/L (5-15)
[2020-04-27] MEDS ORDERED: Warfarin 2.5 MG Tab PO ONE (12:00)
--- NOTE | 2020-04-27 12:17 | PN ---
Progress Note for FATMATA MASON Date: 04/27/2020 Room #: VM.204 CHIEF COMPLAINT: Fall at home. SUBJECTIVE: Hospital day #3 for a 75-year-old male patient who was originally admitted to the observation unit 2 days ago, who presented to the emergency room after he had fallen at home. The patient did have a fever of 103.4 with a heart rate of 100. The patient had a fall in his bathroom at home, striking his head and back, but did not have any bruising. Initial trauma workup in the emergency department did not show any acute pathology for head or C-spine. The patient was found to have a UTI. The patient did also have the 2nd vaccination of COVID- 19 on 04/24. The patient was feeling generally weak and fatigued. Given assessment findings, patient was admitted, originally for observation, but then changed to acute given his ongoing symptoms. The patient also had an initial lactic acid of 3.8. The patient denies any concerns this morning. He states that he is feeling much better. The patient denies any headaches, dizziness, or lightheadedness. The patient denies any shortness of breath or cough. He denies any chest pain or palpitations. The patient states he is eating and drinking well. No problems with bowel movements or urination. He denies any abdominal pain. No nausea or vomiting. The patient states that he slept okay overnight. The patient offers no other specific concerns today. REVIEW OF SYSTEMS: Skin: Negative. Respiratory: Negative. Cardiovascular: Negative. Abdomen: Negative. Neurological: Negative. Constitutional: Negative. PHYSICAL EXAMINATION: Vital Signs: Temperature 97.8, pulse 96, blood pressure 108/78, respirations 16, oxygen saturation 95% on room air. Skin: Intact, warm and dry. Respiratory: Lungs are clear, but decreased throughout. Cardiovascular: Regular rate and rhythm, no murmur. Abdomen: Soft. Bowel sounds are hypoactive x4, nontender. Neurological: The patient is alert. Patient is cooperative. No focal neurological deficits. General: The patient is alert. Patient is cooperative. The patient does not appear to be in any acute distress. LABORATORY STUDIES: CBC: White blood cell count 6.2, hemoglobin 13.0, hematocrit 39.4, platelets are 145,000. CMP: Sodium 136, potassium 3.7, chloride 99, CO2 of 26, anion gap 14.7, BUN 23, creatinine 0.9, GFR greater than 60, glucose 172, calcium 9.0, total bilirubin 0.4, AST 17, ALT 28, alkaline phosphatase 54, protein 7.3, albumin 3.3. Lactic acid 1.6. ASSESSMENT: 1. Sepsis with fever and chills related to urinary tract infection with recent COVID-19 vaccination. 2. Lactic acidosis, resolved. 3. Atrial fibrillation with rapid ventricular response. 4. Multiple reactions to COVID-19 vaccination. 5. Coronary artery disease. 6. Diastolic heart failure with ezxs-wr-hvfrveho aortic stenosis. 7. Fall. 8. Mild anemia. 9. Restless legs syndrome. 10.Diabetes with long-term use of insulin. No complications. PLAN: The patient will continue on acute cares today. We will continue to monitor fevers and fluid status. Continue with IV antibiotics given patient's initial presentation. Recheck laboratory work tomorrow morning. Continue with telemetry to monitor for any uncontrolled atrial fibrillation given current sepsis picture. If the patient continues to do well throughout today, anticipate a discharge home tomorrow with home health. TB: 04/27/2020 11:40:42 MODL: 04/27/2020 12:09:30 /[id number]
[2020-04-27] MEDS: cefTRIAXone 2 GM Vial IVPUSH SCH (19:55)
[2020-04-27] MEDS: Gabapentin 100 MG Cap PO SCH (19:55)
[2020-04-27] MEDS: Latanoprost 0.005% Ophth Soln 2.5 ML Bottle EYEBOTH SCH (19:55)
[2020-04-27] MEDS: Melatonin 3 MG Tab PO SCH (19:56)
[2020-04-27] MEDS ORDERED: Warfarin 5 MG Tab PO SCH (20:00)
[2020-04-27] MEDS: Sodium Chloride 0.9% 10 ML Syringe FLUSH PRN (20:03)
[2020-04-28] MEDS: Omeprazole 20 MG Cap.CR PO SCH (06:33)
[2020-04-28] MEDS: Fluticasone-Salmeterol 113-14 MCG Powder Inhalant INH SCH (06:33)
[2020-04-28] MEDS: Hydrocortisone 2.5% Crm 30 GM Tube TOP SCH (08:13)
[2020-04-28] MEDS: Insulin Lispro 100 Units/ML 3 ML Vial SUBCUT SCH ×4 (08:13→12:10)
[2020-04-28] MEDS: Insulin Glarg,Human.Rec.Analog 100 Unit/ML SUBCUT SCH (08:14)
[2020-04-28] MEDS: atorvaSTATin 40 MG Tab PO SCH (08:14)
[2020-04-28] MEDS: Venlafaxine 75 MG Cap.ER PO SCH (08:14)
[2020-04-28] MEDS: Cyanocobalamin (Vitamin B12) 1,000 MCG Tab PO SCH (08:14)
[2020-04-28] MEDS: Ascorbic Acid 500 MG Tab PO SCH (08:15)
[2020-04-28] MEDS: Metoprolol Tartrate 50 MG Tab PO SCH (08:15)
[2020-04-28] MEDS: Ferrous Sulfate 325 MG Tab PO SCH (08:16)
[2020-04-28] MEDS: Aspirin 325 MG Tab.EC PO SCH (08:16)
[2020-04-28] MEDS: Multivitamins with Iron/Calcium/Folic Acid/Minerals Tab PO SCH (08:16)
[2020-04-28 08:38] LABS: CHLORIDE,CL 101 mmol/L (98-107); SODIUM,NA 139 mmol/L (136-145)
[2020-04-28 08:41] LABS: ANION GAP 15.8 mmol/L (5-15)
[2020-04-28] MEDS ORDERED: Warfarin 2.5 MG Tab PO ONE (09:15)
[2020-04-28] MEDS ORDERED: SEMAGLUTIDE 0.5 MG SQ SCH (12:00)
[2020-04-28] MEDS: cefTRIAXone 2 GM Vial IVPUSH SCH (13:43)
--- NOTE | 2020-04-29 07:13 | DISCH ---
ADMITTING DIAGNOSES: 1. Sepsis with fever and chills related to a urinary tract infection. 2. Lactic acidosis. 3. Atrial fibrillation with rapid ventricular response. 4. Local reaction to COVID-19 vaccine. 5. Coronary artery disease. 6. Diastolic heart failure with avjn-no-vtzbgebx aortic stenosis. 7. Fall. 8. Mild anemia. 9. Restless legs. 10.Diabetes. DISCHARGE DIAGNOSES: 1. Sepsis with fever and chills related to urinary tract infection-resolved. 2. Lactic acidosis-resolved. 3. Atrial fibrillation with rapid ventricular response, improved. 4. Local reaction to COVID-19 vaccination-resolved. 5. Coronary artery disease, stable. 6. Diastolic heart failure with yvpg-yb-mkeklwfk aortic stenosis, stable. 7. Fall-improved. 8. Mild anemia-stable. 9. Restless legs-stable. 10.Diabetes-stable. HISTORY OF PRESENT ILLNESS: A 75-year-old male patient was originally admitted to the observation unit at [facility] after presenting to the emergency room with a fever of 103.4, heart rate of 100, and a fall in his bathroom where he did hit his head and back. Workup in the emergency room did not show any acute etiology for the head and neck injury, which was stable. The patient was febrile, dehydrated, and elevated lactic acid level of 3.8. Urine was positive for a UTI. COVID-negative. Given the patient's ongoing fevers and recent COVID vaccination, the patient was changed to inpatient for further monitoring, IV fluids, and IV antibiotics. HOSPITAL COURSE: The patient remained hemodynamically stable. The patient's symptoms resolved. The patient remained afebrile. The patient's lactic acid normalized to 1.6. The patient did not have a white cell count. The patient did have some issues with ambulation secondary to his history of Meniere's disease. The patient did not have any issues with urination or bowel movements. The patient was adequately drinking. CONSULTATION: Physical Therapy. DISCHARGE DIET: ADA, low-sodium, fluid restriction. ACTIVITY: As tolerated. REVIEW OF SYSTEMS: Constitutional: Negative. Skin: Negative. Respiratory: Negative. Cardiovascular: Negative. Abdomen: Negative. Neurological: Negative. DISCHARGE PHYSICAL EXAMINATION: Vital Signs: Temperature 97.7, weight 280.8 pounds, pulse 82, blood pressure 111/72, respiratory rate 16, oxygen saturation 95% on room air. Skin: Intact. Warm and dry. Respiratory: Lungs are clear throughout. Cardiovascular: Irregularly irregular rhythm, irregular rate. Abdomen: Soft, bowel sounds are normoactive x4. Nontender. Neurological: The patient is alert. The patient is oriented to person, place, and time. No focal neurological deficits. DISCHARGE LABORATORY WORK: 1. CBC: White blood cell count 6.3, hemoglobin 12.6, hematocrit 38.5, platelets 143,000. 2. PT 21.1, INR 1.9. 3. BMP: Sodium 139, potassium 3.8, chloride 101, CO2 of 26, anion gap 15.8, BUN 20, creatinine 0.9, GFR greater than 60, glucose 194, calcium 8.9. DISCHARGE MEDICATIONS: 1. Acetaminophen 1000 mg twice daily as needed. 2. Albuterol HFA 1 to 2 puffs every 4 hours as needed. 3. Aspirin 325 mg 1 tablet p.o. daily. 4. Cyanocobalamin 1000 mcg 1 tablet p.o. daily. 5. Ferrous fumarate/vitamin C 1 tablet p.o. daily. 6. Fexofenadine 60 mg p.o. twice daily as needed. 7. Breo Ellipta 100/25 one puff via inhalation daily. 8. Gabapentin 500 mg p.o. at bedtime. 9. Maxzide 25 mg/37.5 mg 1 tablet p.o. daily. 10.NovoLog 15 units subcu with supper, 10 units with lunch, and 15 units with dinner. 11.Tresiba 78 units subcu daily. 12.Latanoprost 0.005% ophthalmic solution 1 drop both eyes daily at bedtime. 13.Meclizine 25 mg p.o. 4 times a day as needed. 14.Melatonin 10 mg 1 tablet p.o. daily at bedtime. 15.Metoprolol tartrate 25 mg 1 tablet p.o. twice daily. 16.Multivitamin 1 tablet p.o. daily. 17.Nitroglycerin 0.4 mg sublingual every 5 minutes as needed for chest pain. 18.Pantoprazole 40 mg 1 tablet p.o. daily. 19.Rosuvastatin 40 mg 1 tablet p.o. daily. 20.Ozempic 0.5 mg subcu every 7 days. 21.Senna/docusate 1 tablet p.o. twice daily as needed. 22.Venlafaxine 150 mg 1 tablet p.o. daily. 23.Coumadin 5 mg p.o. every Wednesday, Wednesday, , Wednesday. 24.Coumadin 7.5 mg 1 tablet p.o. Wednesday, Wednesday, Wednesday. 25.Diazepam 2 mg p.o. every 4 hours as needed. 26.Metformin 1000 mg 1 tablet p.o. twice daily with meals. ASSESSMENT: 1. Sepsis with fever and chills related to urinary tract infection. 2. Lactic acidosis. 3. Atrial fibrillation with rapid ventricular response. 4. Local reaction to COVID-19 vaccination. 5. Coronary artery disease. 6. Diastolic heart failure with cwrp-ka-arhedycc aortic stenosis. 7. Fall. 8. Mild anemia. 9. Restless legs. 10.Diabetes. PLAN: The patient will be discharged home today. We will restart the patient's metformin and Maxzide. The home health care agency will continue to follow the patient. No changes with home medications. We will continue the patient on Macrobid 100 mg twice daily for the next 4 days. We discussed adequate hydration. I would like the patient to follow up with Dr. Jaycee Yanez this week in clinic for a hospital recheck. The patient was discharged from the hospital in hemodynamic stable condition. TB: 04/28/2020 11:46:56 MODL: 04/28/2020 12:54:59 /[id number]
== END 2020-04-28 14:25 | disposition home health service (06) | DRG 872 ==
LOC: VM.ED 18:42 → VM.MS 21:10 → OBSVTOIN 04-26 09:08
PROVIDERS: ADMIT Internal Medicine; ATTEND Internal Medicine
DX: A41.9 Sepsis, unspecified organism (principal); N39.0 Urinary tract infection, site not specified; R47.01 Aphasia; I50.32 Chronic diastolic (congestive) heart failure; I25.10 Atherosclerotic heart disease of native coronary artery without angina pectoris; D64.9 Anemia, unspecified; G25.81 Restless legs syndrome; H40.9 Unspecified glaucoma; G47.30 Sleep apnea, unspecified; Z20.822 Contact with and (suspected) exposure to COVID-19; M19.90 Unspecified osteoarthritis, unspecified site; F41.9 Anxiety disorder, unspecified; F32.9 Major depressive disorder, single episode, unspecified; E66.9 Obesity, unspecified; E11.9 Type 2 diabetes mellitus without complications; S09.90XA Unspecified injury of head, initial encounter; I48.91 Unspecified atrial fibrillation; I35.0 Nonrheumatic aortic (valve) stenosis; Z91.040 Latex allergy status; Z88.8 Allergy status to other drugs, medicaments and biological substances; Z88.0 Allergy status to penicillin; Z79.82 Long term (current) use of aspirin; Z79.4 Long term (current) use of insulin; Z79.01 Long term (current) use of anticoagulants; Z79.52 Long term (current) use of systemic steroids; Z98.49 Cataract extraction status, unspecified eye; E87.2 Acidosis; Z86.718 Personal history of other venous thrombosis and embolism; Z87.442 Personal history of urinary calculi; Z68.38 Body mass index [BMI] 38.0-38.9, adult; K21.9 Gastro-esophageal reflux disease without esophagitis; R13.10 Dysphagia, unspecified; I11.0 Hypertensive heart disease with heart failure; H81.09 Meniere's disease, unspecified ear; Z79.899 Other long term (current) drug therapy; Z85.46 Personal history of malignant neoplasm of prostate; W18.30XA Fall on same level, unspecified, initial encounter; Y92.009 Unspecified place in unspecified non-institutional (private) residence as the place of occurrence of the external cause
CPT/HCPCS: 0240U; 36415; 70450; 71045; 72125; 80048; 80053; 80307; 81001; 82962; 83605; 83615; 84484; 85025; 85610; 85730; 86140; 87040; 87086; 93005; 93010; 96374; 99220; 99285-25; A9270-GY; G0378; J0696; J1815-GY; J7030

== ENCOUNTER 2020-07-12 14:11 | Emergency (ER) | payer MEDICARE, OTHER ==
[2020-07-12] MEDS ORDERED: Sodium Chloride 0.9% 10 ML Syringe FLUSH PRN (14:25)
[2020-07-12] MEDS ORDERED: diphenhydrAMINE 50 MG/ML SDV IVPUSH ONE (14:33)
[2020-07-12] MEDS ORDERED: Ketorolac 15 MG/ML SDV IVPUSH ONE (14:33)
[2020-07-12] MEDS ORDERED: Metoclopramide 10 MG/2 ML SDV IVPUSH ONE (14:34)
[2020-07-12 14:58] LABS: CHLORIDE,CL 101 mmol/L (98-107); SODIUM,NA 139 mmol/L (136-145)
[2020-07-12 15:00] LABS: ANION GAP 15.2 mmol/L (5-15)
--- NOTE | 2020-07-12 15:00 | EDM.PDOC ---
ED HPI GENERAL MEDICAL PROBLEM - General Stated Complaint: headache Time Seen by Provider: 07/12/20 14:11 Source of Information: Reports: Patient History Limitations: Reports: No Limitations - History of Present Illness INITIAL COMMENTS - FREE TEXT/NARRATIVE: Pt. presents to ER with complaints of headache that he has been experiencing for approx. 1 week. He also complains of congestion and rhinorrhea but states that this has improved somewhat. Denies any acute vision loss, but does complain of some worsening of his vision consistent with macular degeneration. Pt. states that he recently travelled to [place] for a wedding while having the discomfort; he did not seek medical attention because he didn't want to miss the event. He states that he did not take his coumadin for the past 3 days. Pt. states that the discomfort is located in the R frontal/temporal area. He states that discomfort is worse with percussion of the area. Pt. denies any recent head trauma. No numbness/tingling in extremities. No problems with speech. He ambulates with the assistance of a walker, and states that this is normal. No reported facial droop. Pt. has a history of Meniere's disease, and he denies any increased vertigo today. Pt. denies any chest pain, shortness of breath, nausea, vomiting, cough, congestion, fever, or chills. Onset: Today Onset Date: 07/04/20 Location: Reports: Head Quality: Reports: Ache, Throbbing Severity: Moderate Headache Pain Score (Numeric/FACES): 7 - Related Data Allergies Allergy/AdvReac Type Severity Reaction Status Date / Time liraglutide [From Victoza] Allergy Severe Anaphylactic Verified 09/28/18 16:07 Shock Latex, Natural Rubber Allergy Rash Verified 09/28/18 16:07 metoprolol Allergy Hypotension Verified 06/26/20 15:15 Penicillins Allergy Rash Verified 09/28/18 16:07 Beta-Blockers AdvReac Hypotension Verified 09/28/18 16:07 (Beta-Adrenergic Bloc Home Meds: Home Meds Albuterol [IJD: Albuterol HFA] 1 - 2 puff PO Q4H PRN 05/27/17 [History] Gabapentin [Neurontin] 500 mg PO BEDTIME 05/27/17 [History] Nitroglycerin [Nitrostat] 0.4 mg PO ASDIRECTED PRN 05/27/17 [History] Pantoprazole Sodium [Protonix] 40 mg PO DAILY 05/27/17 [History] Rosuvastatin [Crestor] 40 mg PO DAILY 05/27/17 [History] Venlafaxine [Effexor XR] 150 mg PO DAILY 05/27/17 [History] metFORMIN HCl [Metformin HCl] 1,000 mg PO BIDMEALS 05/27/17 [History] Acetaminophen [Tylenol Extra Strength] 1,000 mg PO BID PRN 09/28/18 [History] Aspirin 325 mg PO DAILY 09/28/18 [History] Insulin Degludec [Tresiba] 70 unit SQ DAILY 09/28/18 [History] Melatonin 10 mg PO BEDTIME 09/28/18 [History] Sennosides/Docusate Sodium [Senna-Docusate Sodium Tablet] 1 tab PO BID PRN 09/28/18 [History] Warfarin Sodium [Jantoven] 5 mg PO ASDIRECTED 09/28/18 [History] Cyanocobalamin (Vitamin B-12) [B-12] 1,000 mcg PO DAILY 04/25/20 [History] Fluticasone/Vilanterol [Breo Ellipta 100-25 MCG Inhalation Kit] 1 puff PO DAILY 04/25/20 [History] Insulin Aspart [NovoLOG] 10 unit SQ WITHDINNER 04/25/20 [History] Insulin Aspart [NovoLOG] 15 unit SQ WITHLUNCH 04/25/20 [History] Meclizine [Antivert] 25 mg PO QID PRN 04/25/20 [History] Multivitamin [Daily-Kylah] 1 each PO DAILY 04/25/20 [History] Semaglutide [Ozempic] 0.5 mg SQ Q7D 04/25/20 [History] diazePAM [Valium] 2 mg PO Q4H PRN MDD TINNUITIS 04/25/20 [History] Ferrous Fumarate/Vitamin C [Vitron-C] 1 tab PO DAILY 06/26/20 [History] Fexofenadine [Lamar] 60 mg PO BID PRN 06/26/20 [History] Latanoprost [Xalatan] 1 drop EYEBOTH BEDTIME 06/26/20 [History] Metoprolol Tartrate 25 mg PO BID 06/26/20 [History] Tiotropium [place] [Spiriva Respimat] 2 puff INH DAILY 06/26/20 [History] Triamterene/Hydrochlorothiazid [Triamterene-HCTZ 37.5-25 MG] 1 each PO DAILY 06/26/20 [History] Past Medical History HEENT History: Reports: Cataract, Glaucoma, Other (See Below) Other HEENT History: menieres disease Cardiovascular History: Reports: Aneurysm, Blood Clots/VTE/DVT, CAD, Heart Failure, Heart Murmur, Hypertension, SOB on Exertion, Other (See Below) Other Cardiovascular History: aortic stenosis Respiratory History: Reports: Sleep Apnea, Other (See Below) Other Respiratory History: pt says he might have COPD; reactive airway disease; SKAGGS Gastrointestinal History: Reports: Colon Polyp, GERD, Other (See Below) Other Gastrointestinal History: dysphagia Genitourinary History: Reports: Renal Calculus Musculoskeletal History: Reports: Arthritis Neurological History: Reports: Neuropathy, Diabetic, Other (See Below) Other Neuro History: mononeuritis Psychiatric History: Reports: Anxiety, Depression Endocrine/Metabolic History: Reports: Diabetes, Type II, Obesity/BMI 30+ Hematologic History: Reports: Other (See Below) Other Hematologic History: heterozygous factor V Leiden mutation Immunologic History: Reports: None Oncologic (Cancer) History: Reports: Prostate Dermatologic History: Reports: Eczema - Infectious Disease History Infectious Disease History: Reports: None - Past Surgical History Head Surgeries/Procedures: Reports: None HEENT Surgical History: Reports: Cataract Surgery, Naso-Sinus Surgery, Tonsillectomy Other HEENT Surgeries/Procedures: cornea transplant bilateral Cardiovascular Surgical History: Reports: Coronary Artery Bypass, Coronary Artery Stent GI Surgical History: Reports: Bariatric Procedure, Colonoscopy, Other (See Below) Other GI Surgeries/Procedures: hemmorrhoidectomy; lap band Other Female Surgeries/Procedures: IR IVC filter belw renal veins Male Surgical History: Reports: Prostatectomy, Other (See Below) Musculoskeletal Surgical History: Reports: ORIF Other Oncologic Surgeries/Procedures: prostatectomy Dermatological Surgical History: Reports: Other (See Below) Social & Family History - Family History HEENT: Reports: None Cardiac: Reports: Afib, CAD Respiratory: Reports: None GI: Reports: None OBGYN: Reports: None Musculoskeletal: Reports: None Neurological: Reports: Alzheimers Disease Psychiatric: Reports: None Endocrine/Metabolic: Reports: None Hematologic: Reports: None Immunologic: Reports: None Dermatologic: Reports: None Oncologic: Reports: None - Caffeine Use Caffeine Use: Reports: Coffee ED ROS GENERAL - Review of Systems Review Of Systems: See Below Constitutional: Reports: No Symptoms HEENT: Reports: Other (watering, blurred vision to R eye for several weeks) Cardiovascular: Reports: No Symptoms Endocrine: Reports: No Symptoms GI/Abdominal: Reports: No Symptoms : Reports: No Symptoms Musculoskeletal: Reports: No Symptoms Skin: Reports: No Symptoms Neurological: Reports: Headache. Denies: Confusion, Dizziness, Numbness, Paresthesia, Seizure, Syncope, Tingling, Tremors, Trouble Speaking, Difficulty Walking, Weakness, Change in Speech, Gait Disturbance Psychiatric: Reports: No Symptoms Hematologic/Lymphatic: Reports: No Symptoms Immunologic: Reports: No Symptoms ED EXAM, GENERAL - Physical Exam Exam: See Below Exam Limited By: No Limitations General Appearance: Alert, WD/WN, No Apparent Distress Eye Exam: Bilateral Eye: EOMI, PERRL, Other (IOP R eye 25, IOP L eye 15. Visual acuity L eye is 20/70, R eye is 20/50.) Throat/Mouth: Normal Lips, Normal Teeth, Normal Oropharynx, Normal Voice, No Airway Compromise Head: Atraumatic, Normocephalic Neck: Normal Inspection, Non-Tender Respiratory/Chest: No Respiratory Distress, Lungs Clear, Normal Breath Sounds, No Accessory Muscle Use, Chest Non-Tender Cardiovascular: No Edema, No JVD, No Murmur Peripheral Pulses: 4+: Radial (R) GI/Abdominal: Soft, Non-Tender, No Distention, No Mass (Male) Exam: Deferred Rectal (Males) Exam: Deferred Extremities: Normal Inspection, Normal Range of Motion, Non-Tender, No Pedal Edema, Normal Capillary Refill Neurological: Alert, Oriented, CN II-XII Intact, Normal Cognition, Normal Gait, Normal Reflexes, No Motor/Sensory Deficits, Other (No pronator drift, speech fluent. ) Psychiatric: Normal Affect, Normal Mood Skin Exam: Warm, Dry, Intact, Normal Color, No Rash Lymphatic: No Adenopathy Course - Vital Signs Last Recorded V/S: Last Vital Signs Temp 36.6 C 07/12/20 14:15 Pulse 77 07/12/20 14:15 Resp 16 07/12/20 14:15 BP 140/45 L 07/12/20 14:15 Pulse Ox 97 07/12/20 14:15 - Orders/Labs/Meds Orders: Active Orders 24 hr Category Date Time Status Sodium Chloride 0.9% [Saline Flush] Med 07/12/20 14:25 Active 10 ml FLUSH ASDIRECTED PRN Peripheral IV Insertion Adult [OM.PC] Routine Oth 07/12/20 14:25 Ordered Medication Orders Sodium Chloride (Sodium Chloride 0.9% 10 Ml Syringe) 10 ml FLUSH ASDIRECTED PRN PRN Reason: Keep Vein Open Labs: Laboratory Tests 07/12/20 07/12/20 07/12/20 Range/Units 14:30 14:30 14:30 WBC 8.4 (4.0-10.0) x10^3/uL RBC 4.31 L (4.5-6.0) x10^6/uL Hgb 13.0 L (14.0-18.0) g/dL Hct 40.4 (40.0-52.0) % MCV 93.7 H (78.0-93.0) fL MCH 30.2 (26.0-32.0) pg MCHC 32.2 (32.0-36.0) g/dL RDW Coeff of Kim 17.1 H (10.0-15.0) % Plt Count 218 D (130-400) x10^3/uL Add Manual Diff Yes Neutrophils % (Manual) 74 (50-80) % Band Neutrophils % 4 (0-6) % Lymphocytes % (Manual) 14 L (25-50) % Reactive Lymphs % 3 H (0) % Monocytes % (Manual) 4 (2-11) % Eosinophils % (Manual) 1 (0-4) % Platelet Estimate Adequate Giant Platelets Rare H Polychromasia Rare Anisocytosis 1+ slight H Macrocytosis 1+ slight H ESR (0-15) mm/hr PT 16.9 H (9.9-12.5) SEC INR 1.5 L (2.0-3.5) Sodium 139 (136-145) mmol/L Potassium 4.2 (3.5-5.1) mmol/L Chloride 101 (98-107) mmol/L Carbon Dioxide 27 (21-32) mmol/L Anion Gap 15.2 H (5-15) mmol/L BUN 24 H (7-18) mg/dL Creatinine 1.1 (0.70-1.30) mg/dL Est Cr Clr Drug Dosing TNP Estimated GFR (MDRD) > 60 Glucose 194 H (70-99) mg/dL Calcium 9.4 (8.5-10.1) mg/dL Corrected Calcium 9.80 (8.5-10.1) mg/dL Total Bilirubin 0.3 (0.2-1.0) mg/dL AST 17 (15-37) U/L ALT 37 (16-63) U/L Alkaline Phosphatase 59 (46-116) U/L C-Reactive Protein < 0.2 (<=0.9) mg/dL Total Protein 7.4 (6.4-8.2) g/dL Albumin 3.5 (3.4-5.0) g/dL Globulin 3.9 Albumin/Globulin Ratio 0.90 04/30/21 Range/Units 14:30 WBC (4.0-10.0) x10^3/uL RBC (4.5-6.0) x10^6/uL Hgb (14.0-18.0) g/dL Hct (40.0-52.0) % MCV (78.0-93.0) fL MCH (26.0-32.0) pg MCHC (32.0-36.0) g/dL RDW Coeff of Kim (10.0-15.0) % Plt Count (130-400) x10^3/uL Add Manual Diff Neutrophils % (Manual) (50-80) % Band Neutrophils % (0-6) % Lymphocytes % (Manual) (25-50) % Reactive Lymphs % (0) % Monocytes % (Manual) (2-11) % Eosinophils % (Manual) (0-4) % Platelet Estimate Giant Platelets Polychromasia Anisocytosis Macrocytosis ESR 30 H (0-15) mm/hr PT (9.9-12.5) SEC INR (2.0-3.5) Sodium (136-145) mmol/L Potassium (3.5-5.1) mmol/L Chloride (98-107) mmol/L Carbon Dioxide (21-32) mmol/L Anion Gap (5-15) mmol/L BUN (7-18) mg/dL Creatinine (0.70-1.30) mg/dL Est Cr Clr Drug Dosing Estimated GFR (MDRD) Glucose (70-99) mg/dL Calcium (8.5-10.1) mg/dL Corrected Calcium (8.5-10.1) mg/dL Total Bilirubin (0.2-1.0) mg/dL AST (15-37) U/L ALT (16-63) U/L Alkaline Phosphatase (46-116) U/L C-Reactive Protein (<=0.9) mg/dL Total Protein (6.4-8.2) g/dL Albumin (3.4-5.0) g/dL Globulin Albumin/Globulin Ratio Meds: Medications Generic Name Dose Route Start Last Admin Trade Name Freq PRN Reason Stop Dose Admin Sodium Chloride 10 ml 07/12/20 14:25 Sodium Chloride 0.9% 10 Ml Syringe FLUSH ASDIRECTED PRN Keep Vein Open Discontinued Medications Generic Name Dose Route Start Last Admin Trade Name Freq PRN Reason Stop Dose Admin Diphenhydramine HCl 25 mg 07/12/20 14:33 07/12/20 15:03 Diphenhydramine 50 Mg/Ml Sdv IVPUSH 07/12/20 14:34 25 mg ONETIME ONE Administration Ketorolac Tromethamine 15 mg 07/12/20 14:33 07/12/20 15:03 Ketorolac 15 Mg/Ml Sdv IVPUSH 07/12/20 14:34 15 mg ONETIME ONE Administration Metoclopramide HCl 10 mg 07/12/20 14:34 07/12/20 15:03 Metoclopramide 10 Mg/2 Ml Sdv IVPUSH 07/12/20 14:35 10 mg ONETIME ONE Administration Proparacaine HCl 1 ml 07/12/20 15:52 07/12/20 15:56 Proparacaine 0.5% Ophth Soln 15 Ml Bottle EYELF 07/12/20 15:53 2 drop ONETIME ONE Administration - Radiology Interpretation Free Text/Narrative:: CT brain/sinuses without contrast was obtained. No acute intracranial pathology noted. No evidence of sinusitis noted. Departure - Departure Time of Disposition: 17:00 Disposition: Home, Self-Care 01 Clinical Impression: Migraine, Glaucoma - Discharge Information Instructions: Migraine Headache, [id number], Glaucoma, [id number] Referrals: Jaycee Yanez, DO [Primary Care Provider] - Forms: ED Department Discharge Additional Instructions: Follow-up with Dr. Yanez next week. Call Dr. Stein's office on Wednesday and follow-up with him AVELINO as well. He didn't advise any changes to your medications at this time. Return to ER if you have any acute vision loss or change. Also, return if you are having trouble speaking, walking, or if the headache is not gradually continuing to improve. Sepsis Event Note (ED) - Focused Exam Vital Signs: Vital Signs Temp Pulse Resp BP Pulse Ox 07/12/20 14:15 36.6 C 77 16 140/45 L 97 - Problem List Review Problem List Initiated/Reviewed/Updated: Yes - My Orders Last 24 Hours: My Active Orders 07/12/20 14:25 Sodium Chloride 0.9% [Saline Flush] 10 ml FLUSH ASDIRECTED PRN Peripheral IV Insertion Adult [OM.PC] Routine - Assessment/Plan Last 24 Hours: My Active Orders 07/12/20 14:25 Sodium Chloride 0.9% [Saline Flush] 10 ml FLUSH ASDIRECTED PRN Peripheral IV Insertion Adult [OM.PC] Routine Plan: Discussed findings with Dr. Barrera. She advised follow-up next week with Dr. Yanez. We will not start any steroids at this time due to his diabetes. Referral for temporal artery biopsy is he is continuing to have discomfort. I did also touch base with his Table Maker, Dr. Stein. He also advised no change to his medications at this time. Pt. was advised to follow-up with him AVELINO as well. Pt. was given reglan 10mg IV, toradol 15mg IV, and benadryl 25mg IV and reported significant improvement in his discomfort. He was advised to return to ER if he has any acute change in vision, problems with speech, ambulation, or if discomfort is not gradually continuing to improve.
--- NOTE | 2020-07-12 15:29 | CT ---
[id number] CT/CT Sinus Survey WO IV Exam: CT Sinus Survey WO IV Clinical Data: HEADACHE COMPARISON: CORRELATION IS MADE WITH THE CURRENT CAT SCAN BRAIN FINDINGS: Medial antrectomy changes are seen Functional endoscopic sinus surgical changes also are seen There is chronic mild mucosal thickening of the right maxillary sinus Mastoidectomy changes are seen on the right IMPRESSION: NO EVIDENCE OF SINUSITIS CURRENTLY Familia Lopez MD 07/15/20 [id number] Thank you for allowing us to participate in the care of your patient.
--- NOTE | 2020-07-12 15:33 | CT ---
[id number] CT/CT Sinus Survey WO IV Exam: CT Sinus Survey WO IV Clinical Data: HEADACHE COMPARISON: CORRELATION IS MADE WITH THE CURRENT CAT SCAN BRAIN FINDINGS: Medial antrectomy changes are seen Functional endoscopic sinus surgical changes also are seen There is chronic mild mucosal thickening of the right maxillary sinus Mastoidectomy changes are seen on the right IMPRESSION: NO EVIDENCE OF SINUSITIS CURRENTLY Familia Lopez MD 07/12/20 [id number] Thank you for allowing us to participate in the care of your patient.
[2020-07-12] MEDS ORDERED: Proparacaine 0.5% Ophth Soln 15 ML Bottle EYELF ONE (15:52)
== END 2020-07-12 17:15 | disposition home or self-care (01) ==
LOC: VM.ED 14:11
DX: G43.909 Migraine, unspecified, not intractable, without status migrainosus (principal); H40.9 Unspecified glaucoma; I25.10 Atherosclerotic heart disease of native coronary artery without angina pectoris; I11.0 Hypertensive heart disease with heart failure; I50.9 Heart failure, unspecified; K21.9 Gastro-esophageal reflux disease without esophagitis; E11.9 Type 2 diabetes mellitus without complications; E66.9 Obesity, unspecified; Z79.01 Long term (current) use of anticoagulants; Z79.82 Long term (current) use of aspirin; Z79.4 Long term (current) use of insulin; Z88.0 Allergy status to penicillin; Z91.040 Latex allergy status; Z88.5 Allergy status to narcotic agent; Z88.8 Allergy status to other drugs, medicaments and biological substances; Z68.41 Body mass index [BMI] 40.0-44.9, adult
CPT/HCPCS: 70450; 70486; 80053; 85025; 85610; 85652; 86140; 96374; 96375; 99284-25; J1200; J1885; J2765

== ENCOUNTER 2020-07-18 09:12 | Day surgery (SDC) | payer MEDICARE, OTHER ==
[2020-07-18] MEDS ORDERED: fentaNYL 100 MCG/2 ML SDV ONE (09:48)
[2020-07-18] MEDS ORDERED: Propofol 200 MG/20 ML SDV ONE ×4 (09:48→11:39)
--- NOTE | 2020-07-19 10:44 | OR ---
DATE OF SURGERY: 07/18/2020. REFERRING PROVIDER: Jaycee Yanez DO PRE-OPERATIVE DIAGNOSIS: History of colon polyps. Last colonoscopy 05/2017. POST-OPERATIVE DIAGNOSES: 1. Long redundant, floppy colon. Was able to make it to the entry to the cecum. 2. Positive hemorrhoids with lack of rectal tone, status post previous surgeries and radiation. He does have known incontinence and lack of control. PROCEDURE: Colonoscopy. SURGEON: Theo Rust M.D. ANESTHESIA: Monitored anesthesia care. BOWEL PREP: Fair to poor. Required significant irrigation and suctioning and visualization was affected for any smaller polyps. Kurt is a 75-year-old male who was brought to the endoscopy suite after discussing risks and benefits of the procedure. Informed consent was obtained for conscious sedation and colonoscopy with or without biopsy and/or polypectomy. We also discussed possibility of missed lesions. Pre-procedure exam was unremarkable. IV, oxygen, and monitors were placed. The patient was placed in the left lateral decubitus position. Sedation was administered and a digital rectal exam was performed and remarkable for poor rectal tone with positive hemorrhoids present. Colonoscope was passed into the rectum and slowly advanced all the way to the entry to the cecum. The patient did have a long redundant floppy colon. The colonoscope was slowly withdrawn and the mucosa was closely observed in a direct circumferential manner. The ascending colon was unremarkable. The transverse colon was unremarkable. The descending colon was unremarkable. The sigmoid colon was unremarkable. Rectal mucosa was remarkable for positive hemorrhoids and poor rectal tone. Scope was removed. The patient tolerated the procedure well. The patient was monitored until that baseline status. Discharge instructions were reviewed and the patient was discharged in good condition. COMPLICATIONS: None. TOTAL TIME: 39 minutes. ESTIMATED BLOOD LOSS: None. RECOMMENDATIONS/FOLLOW-UP: The patient is good for 5 years given his history of polyps. Given the fact that he will be 80 at that time, he can consider being done with colonoscopies barring any change in symptoms. The patient can resume his aspirin tomorrow and okay to resume his warfarin tonight. I would like to kindly thank Jaycee Yanez for this referral. DMB: 07/18/2020 14:24:29 MODL: 07/18/2020 20:16:27 /[id number]
--- NOTE | 2020-07-19 10:44 | OR ---
SURGERY DATE: 07/18/2020. REFERRING PROVIDER: Jaycee Yanez DO PRE-OPERATIVE DIAGNOSES: 1. Gastroesophageal reflux disease. The patient on Protonix 40 mg daily. 2. Dysphagia to the upper sternal area. The patient reports some regurgitation of food and/or medications previously. Last esophagogastroduodenoscopy was done by Dr. Anders in 05/2017. POST-OPERATIVE DIAGNOSES: 1. Small, 2 cm sliding-type hiatal hernia at the gastroesophageal junction. There is prominence to the gastroesophageal junction consistent with the presence of his lap band. 2. Minimal antritis. Cold biopsy x2 bites taken using cold forceps. 3. Normal-appearing esophagus without any strictures, rings, or masses. Cold biopsy x2 bites taken to look for any eosinophilic esophagitis. 4. Mild bile reflux noted within the stomach body. PROCEDURE: Esophagogastroduodenoscopy with cold biopsy x2 sites (antrum and mid esophagus). SURGEON: Theo Rust M.D. ANESTHESIA: Monitored anesthesia care. Kurt is a 75-year-old male who was brought to the endoscope suite after discussion of risks and benefits (including but not limited to reaction to medication, bleeding, infection, aspiration, perforation). Informed consent was obtained for monitored anesthesia care and esophagogastroduodenoscopy along with possible biopsy and/or dilatation. Pre-procedure exam including oral cavity was unremarkable. IV, oxygen, and monitors were placed. Patient was placed in the left lateral position and sedation was administered. A bite block was placed gently and scope lightly lubricated and passed through the bite block and over the tongue. Hypopharynx and vocal cords were visualized and unremarkable. Scope was passed through the cricopharynx and into the esophagus. The scope was then passed through the distal esophagus and the GE junction was visualized and photographed. The GE junction was remarkable for a small 2 cm sliding-type hiatal hernia. Prominence to the GE junction is consistent with the presence of lap band. Vocal cords were visualized and unremarkable. The scope was advanced into the stomach and gastric marrero was suctioned. Pylorus was identified and intubated and then the scope was advanced to the third portion of the duodenum. The second portion of the duodenum was unremarkable. The duodenal bulb was visualized and unremarkable. The scope was brought back into the stomach. The pylorus and the antrum were remarkable for some minimal antritis. Biopsies for path and H pylori were obtained from the antrum. Cold biopsy x2 bites was taken from this area to check for H. pylori and sent for path. The scope was retroflexed to visualize the angularis, fundus, body, and cardia. These were unremarkable except for some mild bile reflux that was noted upon initially entering the stomach. The stomach was desufflated of air and then the scope was slowly withdrawn, and the esophagus was closely visualized during withdrawal all the way into the posterior pharynx and this was unremarkable. Cold biopsy x2 bites taken to check for any eosinophilic esophagitis, which may be contributing to his dysphagia. The patient tolerated the procedure well and went to recovery in stable condition. The patient was monitored until at baseline status. Findings and discharge instructions were reviewed and the patient was discharged in good condition. COMPLICATIONS: None. TOTAL TIME: 11 minutes. ESTIMATED BLOOD LOSS: About 1 mL. RECOMMENDATIONS/FOLLOW-UP: The patient is currently on Protonix 40 mg daily. Looking back at the note from 05/2017, it bumped up to twice daily dosing and states that this probably helped according to the patient. I will do prescription for Protonix 40 mg twice a day for the next month or 2. He can check back in with his PCP for any additional refills. We did go on to the colonoscopy following the EGD. I would like to kindly thank Jaycee Yanez for this referral. DMB: 07/18/2020 14:18:59 MODL: 07/18/2020 19:26:54 /[id number]
== END 2020-07-18 13:40 | disposition home or self-care (01) ==
LOC: VM.SDS 09:12
PROVIDERS: ATTEND Family Medicine
DX: Z12.11 Encounter for screening for malignant neoplasm of colon (principal); K21.9 Gastro-esophageal reflux disease without esophagitis; K44.9 Diaphragmatic hernia without obstruction or gangrene; K29.60 Other gastritis without bleeding; K64.9 Unspecified hemorrhoids; Q43.8 Other specified congenital malformations of intestine; J45.40 Moderate persistent asthma, uncomplicated; Z86.010 Personal history of colon polyps; I10 Essential (primary) hypertension; G47.33 Obstructive sleep apnea (adult) (pediatric); E11.9 Type 2 diabetes mellitus without complications; Z98.84 Bariatric surgery status; Z98.890 Other specified postprocedural states
CPT/HCPCS: 00811; 82947; 85610; 88305; J2704; J3010; J7120

== ENCOUNTER 2020-12-13 11:09 | Emergency (ER) | payer MEDICARE, OTHER ==
[2020-12-13] MEDS ORDERED: Sodium Chloride 0.9% 10 ML Syringe FLUSH PRN (11:14)
--- NOTE | 2020-12-13 11:27 | EDM.PDOC ---
ED HPI GENERAL MEDICAL PROBLEM - General Chief Complaint: Trauma Stated Complaint: fall on blood thinners with LOC unknown time Time Seen by Provider: 12/13/20 11:09 Source of Information: Reports: Patient History Limitations: Reports: No Limitations - History of Present Illness INITIAL COMMENTS - FREE TEXT/NARRATIVE: Patient comes in the emergency department by EMS with concerns of a fall. Patient was at home and states that he was using the refrigerator as a balancing item while he was trying to take his morning weight. He states he does not remember what happened next but he remembers waking up on the floor with a refrigerator on top of them. He does wear life alert which had since the fall and called 911. He states that he was awake prior to 911 services being on scene. But he does not recall the amount of time that he was unresponsive. Patient also states he does not remember the physical fall. Patient states that he does have some right hip pain right ankle discomfort and some muscle stiffness. Patient denies any chest pain, shortness of breath, dizziness, headache, blurred vision, difficulty speaking, abdominal pain, nausea vomiting, fever, or peripheral edema. Patient states that he does have chronic numbness and tingling in his lower extremities. He states that he does not have any increased numbness or tingling in the lower extremities.He states that the ankle does not cause any discomfort while it is resting however it does cause discomfort when he does have movement. Onset: Sudden Quality: Reports: Other Severity: Moderate Improves with: Reports: Rest Worsens with: Reports: Movement Context: Reports: Trauma Associated Symptoms: Reports: No Other Symptoms - Related Data Allergies Allergy/AdvReac Type Severity Reaction Status Date / Time liraglutide [From Victoza] Allergy Severe Anaphylactic Verified 12/13/20 11:38 Shock Latex, Natural Rubber Allergy Rash Verified 12/13/20 11:38 metoprolol Allergy Hypotension Verified 12/13/20 11:38 Penicillins Allergy Rash Verified 12/13/20 11:38 Beta-Blockers AdvReac Hypotension Verified 12/13/20 11:38 (Beta-Adrenergic Bloc Home Meds: Home Meds Albuterol [IJD: Albuterol HFA] 1 - 2 puff PO Q4H PRN 05/27/17 [History] Gabapentin [Neurontin] 500 mg PO BEDTIME 05/27/17 [History] Nitroglycerin [Nitrostat] 0.4 mg PO ASDIRECTED PRN 05/27/17 [History] Pantoprazole Sodium [Protonix] 40 mg PO DAILY 05/27/17 [History] Rosuvastatin [Crestor] 40 mg PO DAILY 05/27/17 [History] Venlafaxine [Effexor XR] 150 mg PO DAILY 05/27/17 [History] metFORMIN HCl [Metformin HCl] 1,000 mg PO BIDMEALS 05/27/17 [History] Acetaminophen [Tylenol Extra Strength] 1,000 mg PO BID PRN 09/28/18 [History] Aspirin 325 mg PO DAILY 09/28/18 [History] Insulin Degludec [Tresiba] 70 unit SQ DAILY 09/28/18 [History] Melatonin 10 mg PO BEDTIME 09/28/18 [History] Sennosides/Docusate Sodium [Senna-Docusate Sodium Tablet] 1 tab PO BID PRN 09/28/18 [History] Warfarin Sodium [Jantoven] 5 mg PO ASDIRECTED 09/28/18 [History] Cyanocobalamin (Vitamin B-12) [B-12] 1,000 mcg PO DAILY 04/25/20 [History] Fluticasone/Vilanterol [Breo Ellipta 100-25 MCG Inhalation Kit] 1 puff PO DAILY 04/25/20 [History] Insulin Aspart [NovoLOG] 10 unit SQ WITHDINNER 04/25/20 [History] Insulin Aspart [NovoLOG] 15 unit SQ WITHLUNCH 04/25/20 [History] Meclizine [Antivert] 25 mg PO QID PRN 04/25/20 [History] Multivitamin with Folic Acid [Daily-Kylah Tablet] 1 each PO DAILY 04/25/20 [History] Semaglutide [Ozempic] 0.5 mg SQ Q7D 04/25/20 [History] diazePAM [Valium] 2 mg PO Q4H PRN MDD TINNUITIS 04/25/20 [History] Ferrous Fumarate/Vitamin C [Vitron-C] 1 tab PO DAILY 06/26/20 [History] Fexofenadine [Lamar] 60 mg PO BID PRN 06/26/20 [History] Latanoprost [Xalatan] 1 drop EYEBOTH BEDTIME 06/26/20 [History] Metoprolol Tartrate 25 mg PO BID 06/26/20 [History] Tiotropium [place] [Spiriva Respimat] 2 puff INH DAILY 06/26/20 [History] Triamterene/Hydrochlorothiazid [Triamterene-HCTZ 37.5-25 MG] 1 each PO DAILY 06/26/20 [History] Past Medical History HEENT History: Reports: Cataract, Glaucoma, Other (See Below) Other HEENT History: menieres disease Cardiovascular History: Reports: Aneurysm, Blood Clots/VTE/DVT, CAD, Heart Failure, Heart Murmur, Hypertension, SOB on Exertion, Other (See Below) Other Cardiovascular History: aortic stenosis Respiratory History: Reports: Sleep Apnea, Other (See Below) Other Respiratory History: pt says he might have COPD; reactive airway disease; SKAGGS Gastrointestinal History: Reports: Colon Polyp, GERD, Other (See Below) Other Gastrointestinal History: dysphagia Genitourinary History: Reports: Renal Calculus Musculoskeletal History: Reports: Arthritis Neurological History: Reports: Neuropathy, Diabetic, Other (See Below) Other Neuro History: mononeuritis Psychiatric History: Reports: Anxiety, Depression Endocrine/Metabolic History: Reports: Diabetes, Type II, Obesity/BMI 30+ Hematologic History: Reports: Other (See Below) Other Hematologic History: heterozygous factor V Leiden mutation Immunologic History: Reports: None Oncologic (Cancer) History: Reports: Prostate Dermatologic History: Reports: Eczema - Infectious Disease History Infectious Disease History: Reports: None - Past Surgical History Head Surgeries/Procedures: Reports: None HEENT Surgical History: Reports: Cataract Surgery, Naso-Sinus Surgery, Tonsillectomy Other HEENT Surgeries/Procedures: cornea transplant bilateral Cardiovascular Surgical History: Reports: Coronary Artery Bypass, Coronary Artery Stent GI Surgical History: Reports: Bariatric Procedure, Colonoscopy, Other (See Below) Other GI Surgeries/Procedures: hemmorrhoidectomy; lap band Other Female Surgeries/Procedures: IR IVC filter belw renal veins Male Surgical History: Reports: Prostatectomy, Other (See Below) Musculoskeletal Surgical History: Reports: ORIF Other Oncologic Surgeries/Procedures: prostatectomy Dermatological Surgical History: Reports: Other (See Below) Social & Family History - Family History HEENT: Reports: None Cardiac: Reports: Afib, CAD Respiratory: Reports: None GI: Reports: None OBGYN: Reports: None Musculoskeletal: Reports: None Neurological: Reports: Alzheimers Disease Psychiatric: Reports: None Endocrine/Metabolic: Reports: None Hematologic: Reports: None Immunologic: Reports: None Dermatologic: Reports: None Oncologic: Reports: None - Caffeine Use Caffeine Use: Reports: Coffee ED ROS GENERAL - Review of Systems Review Of Systems: Comprehensive ROS is negative, except as noted in HPI. Constitutional: Reports: No Symptoms HEENT: Reports: No Symptoms Respiratory: Reports: No Symptoms Cardiovascular: Reports: No Symptoms Endocrine: Reports: No Symptoms GI/Abdominal: Reports: No Symptoms : Reports: No Symptoms Musculoskeletal: Reports: Leg Pain, Muscle Stiffness Skin: Reports: No Symptoms Neurological: Reports: No Symptoms Psychiatric: Reports: No Symptoms Hematologic/Lymphatic: Reports: No Symptoms Immunologic: Reports: No Symptoms ED EXAM, GENERAL - Physical Exam Exam: See Below Exam Limited By: No Limitations General Appearance: Alert, WD/WN, No Apparent Distress Eye Exam: Bilateral Eye: EOMI, PERRL Nose: Normal Inspection, Normal Mucosa Throat/Mouth: Normal Inspection, Normal Lips, Normal Voice, No Airway Compromise Head: Atraumatic, Normocephalic Neck: Normal Inspection, Supple, Non-Tender, Full Range of Motion Respiratory/Chest: No Respiratory Distress, Lungs Clear, Normal Breath Sounds, No Accessory Muscle Use, Chest Non-Tender Cardiovascular: Normal Peripheral Pulses, Regular Rate, Rhythm, No Edema, No Murmur GI/Abdominal: Normal Bowel Sounds, Soft, Non-Tender, No Distention, No Abnormal Bruit, No Mass Back Exam: Normal Inspection Extremities: Normal Inspection, No Pedal Edema, Normal Capillary Refill, Other (right ankle- swelling, limited ROM, bruising an moderate swelling noted) Neurological: Alert, Oriented, CN II-XII Intact Psychiatric: Normal Affect, Normal Mood Skin Exam: Warm, Dry, Intact #1 Interpretation EKG Date: 12/13/20 Time: 11:51 Rhythm: Other (RBB) [place]: Normal ST-T: Normal QT: Normal Comparison: NA - No Prior EKG Course - Orders/Labs/Meds Orders: Active Orders 24 hr Category Date Time Status Sodium Chloride 0.9% [Saline Flush] Med 12/13/20 11:14 Active 10 ml FLUSH ASDIRECTED PRN Peripheral IV Insertion Adult [OM.PC] Stat Oth 12/13/20 11:14 Ordered Medication Orders Sodium Chloride (Sodium Chloride 0.9% 10 Ml Syringe) 10 ml FLUSH ASDIRECTED PRN PRN Reason: Keep Vein Open Labs: Laboratory Tests 12/13/20 12/13/20 12/13/20 Range/Units 11:18 11:18 11:18 WBC 7.6 (4.0-10.0) x10^3/uL RBC 4.55 (4.5-6.0) x10^6/uL Hgb 13.6 L (14.0-18.0) g/dL Hct 41.0 (40.0-52.0) % MCV 90.1 (78.0-93.0) fL MCH 29.9 (26.0-32.0) pg MCHC 33.2 (32.0-36.0) g/dL RDW Coeff of Kim 16.2 H (10.0-15.0) % Plt Count 208 (130-400) x10^3/uL Immature Gran % (Auto) 0.50 H (0.00-0.43) % Neut % (Auto) 68.7 (50.0-80.0) % Lymph % (Auto) 20.1 L (25.0-50.0) % Rankin % (Auto) 8.3 (2.0-11.0) % Eos % (Auto) 1.7 (0.0-4.0) % Baso % (Auto) 0.7 (0.2-1.2) % Neut # (Auto) 5.2 (1.8-7.7) x10^3/uL Lymph # (Auto) 1.5 (1.0-4.8) x10^3/uL Rankin # (Auto) 0.6 (0.0-0.8) x10^3/uL Eos # (Auto) 0.1 (0.0-0.5) x10^3/uL Baso # (Auto) 0.1 (0.0-0.2) x10^3/uL Immature Gran # (Auto) 0.04 (0.00-0.07) x10^3/uL PT 29.6 H D (9.9-12.5) SEC INR 2.7 (2.0-3.5) Sodium 140 (136-145) mmol/L Potassium 4.1 (3.5-5.1) mmol/L Chloride 101 (98-107) mmol/L Carbon Dioxide 28 (21-32) mmol/L Anion Gap 15.1 H (5-15) mmol/L BUN 24 H (7-18) mg/dL Creatinine 1.1 (0.70-1.30) mg/dL Est Cr Clr Drug Dosing TNP Estimated GFR (MDRD) > 60 Glucose 140 H (70-99) mg/dL Calcium 9.4 (8.5-10.1) mg/dL Corrected Calcium 9.8 (8.5-10.1) mg/dL Total Bilirubin 0.3 (0.2-1.0) mg/dL AST 40 H (15-37) U/L ALT 35 (16-63) U/L Alkaline Phosphatase 68 (46-116) U/L Total Protein 7.3 (6.4-8.2) g/dL Albumin 3.5 (3.4-5.0) g/dL Globulin 3.8 Albumin/Globulin Ratio 0.92 Meds: Medications Generic Name Dose Route Start Last Admin Trade Name Freq PRN Reason Stop Dose Admin Sodium Chloride 10 ml 12/13/20 11:14 Sodium Chloride 0.9% 10 Ml Syringe FLUSH ASDIRECTED PRN Keep Vein Open - Re-Assessments/Exams Free Text/Narrative Re-Assessment/Exam: 12/13/20 13:10 pt tolerated food and ambulation with minimal assist in the ER. States he feels he can return home. Denies any pain or discomfort. Departure - Departure Time of Disposition: 13:10 Disposition: Home, Self-Care 01 Condition: Good Clinical Impression: Ankle strain Qualifiers: Encounter type: initial encounter Laterality: right Qualified Code(s): S96.911A - Strain of unspecified muscle and tendon at ankle and foot level, right foot, initial encounter Fall Qualifiers: Encounter type: initial encounter Qualified Code(s): W19.XXXA - Unspecified fall, initial encounter - Discharge Information *PRESCRIPTION DRUG MONITORING PROGRAM REVIEWED*: Not Applicable *COPY OF PRESCRIPTION DRUG MONITORING REPORT IN PATIENT SAM: Not Applicable Instructions: Muscle Strain, [id number] Forms: ED Department Discharge Additional Instructions: 1. Rest 2. Can use tylenol and ibuprofen as needed for pain and discomfort 3. Diet as tolerated 4. Activity as tolerated 5. Elevated the injured area above the level of the heart to decrease swelling and discomfort. 6. Use ice 3-4 times a day at 20-minute intervals to help with any swelling and discomfort 7. Follow-up with your primary care provider symptoms continue or to progress 8. Follow with any questions or concerns 9. Discharge information has been provided regarding your injury - My Orders Last 24 Hours: My Active Orders 12/13/20 11:14 Sodium Chloride 0.9% [Saline Flush] 10 ml FLUSH ASDIRECTED PRN Peripheral IV Insertion Adult [OM.PC] Stat - Assessment/Plan Last 24 Hours: My Active Orders 12/13/20 11:14 Sodium Chloride 0.9% [Saline Flush] 10 ml FLUSH ASDIRECTED PRN Peripheral IV Insertion Adult [OM.PC] Stat Assessment:: 1. fall 2. LOC- unknown amount of time 3. anticoagulant Plan: 1. Trauma coded called due to mechanism of injury with anticoagulant use with LOC 2. CT of head related to unknown length of LOC with anticoagulant use 3. X-ray completed in the emergency department results reviewed with the patient 4. Ice Applied to the affected limb 5. Medication offered to the patient 6. Education regarding splinting, activity, [id number] medications, and follow-up care provided. 7. All questions and concerns addressed with the patient prior to discharge
[2020-12-13 11:42] LABS: ANION GAP 15.1 mmol/L (5-15); CHLORIDE,CL 101 mmol/L (98-107); SODIUM,NA 140 mmol/L (136-145)
--- NOTE | 2020-12-13 12:31 | CR ---
[id number] RAD/RAD Chest Portable EXAM: RAD Chest Portable INDICATION: FALL. COMPARISON: April 25, 2020. DISCUSSION: Median sternotomy wires. Cardiomediastinal silhouette is stable in size and contour. No infiltrate, effusion, pneumothorax, or edema. Left basilar subsegmental atelectasis and/or scarring. No radiographic evidence of acute fracture. IMPRESSION: No acute cardiopulmonary abnormality. Harris Wu DO 12/13/20 [id number] Thank you for allowing us to participate in the care of your patient.
--- NOTE | 2020-12-13 12:38 | CT ---
[id number] CT/CT Head WO IV EXAM: NONCONTRAST HEAD CT INDICATION: FALL WITH LOSS OF CONSCIOUSNESS. COMPARISON: July 12, 2020. DISCUSSION: Mild to moderate generalized atrophy. Mild multifocal white matter hypoattenuation is nonspecific, but generally ascribed to chronic small vessel ischemia. No mass effect or midline shift. No acute hemorrhage or extra-axial fluid collection. No acute territorial infarct is identified. Stable surgical changes right mastoid and maxillary sinus. IMPRESSION: 1. No evidence of acute intracranial trauma. Champ Calvo MD 12/13/20 [id number] Thank you for allowing us to participate in the care of your patient.
--- NOTE | 2020-12-13 12:38 | CR ---
[id number] RAD/RAD Pelvis 1-2V EXAM: SINGLE VIEW PELVIS. INDICATION: FALL. COMPARISON: None. DISCUSSION: No fracture, dislocation or other acute osseous abnormality. Mild degenerative changes of the femoral acetabular joint bilaterally. Multiple surgical clips overlying the pelvis. IMPRESSION: 1. No acute fracture identified. Harris Wu DO 12/13/20 [id number] Thank you for allowing us to participate in the care of your patient.
--- NOTE | 2020-12-13 12:40 | CR ---
[id number] RAD/RAD Ankle Right 3V Min EXAM: 3 VIEWS RIGHT ANKLE. INDICATION: FALL. COMPARISON: None. DISCUSSION: No fracture, dislocation or other acute osseous abnormality. The ankle mortise is maintained. Large plantar calcaneal spur. Enthesopathic change at the Achilles insertion. Mild degenerative changes of the midfoot. Vascular calcification. IMPRESSION: 1. No acute osseous abnormalities. Chronic changes as above. Harris Wu DO 12/13/20 [id number] Thank you for allowing us to participate in the care of your patient.
== END 2020-12-13 13:45 | disposition home or self-care (01) ==
LOC: VM.ED 11:09
DX: S96.911A Strain of unspecified muscle and tendon at ankle and foot level, right foot, initial encounter (principal); I45.10 Unspecified right bundle-branch block; I11.0 Hypertensive heart disease with heart failure; I50.9 Heart failure, unspecified; I25.10 Atherosclerotic heart disease of native coronary artery without angina pectoris; K21.9 Gastro-esophageal reflux disease without esophagitis; M19.90 Unspecified osteoarthritis, unspecified site; E11.40 Type 2 diabetes mellitus with diabetic neuropathy, unspecified; E66.9 Obesity, unspecified; Z88.8 Allergy status to other drugs, medicaments and biological substances; Z91.040 Latex allergy status; Z88.0 Allergy status to penicillin; Z79.82 Long term (current) use of aspirin; Z79.4 Long term (current) use of insulin; Z79.899 Other long term (current) drug therapy; W19.XXXA Unspecified fall, initial encounter; Y92.009 Unspecified place in unspecified non-institutional (private) residence as the place of occurrence of the external cause
CPT/HCPCS: 70450; 71045; 72170; 73610-RT; 80053; 85025; 85610; 93005; 93010; 99284; 99284-25

== ENCOUNTER 2021-06-12 12:41 | Emergency (ER) | payer MEDICARE, OTHER, MEDICAID ==
[2021-06-12] MEDS ORDERED: Aspirin 81 MG Tab.Chew PO ONE (12:43)
[2021-06-12 13:09] LABS: CHLORIDE,CL 104 mmol/L (98-107); SODIUM,NA 141 mmol/L (136-145)
[2021-06-12 13:10] LABS: ANION GAP 12.2 mmol/L (5-15)
== END 2021-06-12 13:54 ==
LOC: VM.ED 12:41
DX: I20.9 Angina pectoris, unspecified (principal); I25.10 Atherosclerotic heart disease of native coronary artery without angina pectoris; I11.0 Hypertensive heart disease with heart failure; I50.9 Heart failure, unspecified; E11.9 Type 2 diabetes mellitus without complications; K21.9 Gastro-esophageal reflux disease without esophagitis; E66.9 Obesity, unspecified; Z68.30 Body mass index [BMI] 30.0-30.9, adult; Z88.0 Allergy status to penicillin; Z91.040 Latex allergy status; Z88.8 Allergy status to other drugs, medicaments and biological substances; Z79.82 Long term (current) use of aspirin; Z79.4 Long term (current) use of insulin; Z79.899 Other long term (current) drug therapy
CPT/HCPCS: 36415; 71045; 80053; 84484; 85025; 85610; 99284; 99285-25; A9270-GY